=== PATIENT | male | born 1960 | race Caucasian/White ===

== ENCOUNTER 2021-04-25 11:56 | Inpatient (IN) | payer BC, OTHER ==
[~2021-04-25] VITALS: Ht 182 cm; Wt 102.7 kg
[2021-04-25] VITALS (9 sets, daily range): BP systolic 102–139; BP diastolic 67–91
[2021-04-25 12:15] LABS: BASOPHILS % (AUTO) 0 % (0-10); EOSINOPHILS % (AUTO) 0 % (0-10); HEMATOCRIT 42 % (40-54); HEMOGLOBIN 14.8 g/dL (13.3-17.7); LYMPHOCYTES % (AUTO) 9 % (12-44); MEAN CORPUSCULAR HEMOGLOBIN 32 pg (25-34); MEAN CORPUSCULAR HGB CONC 35 g/dL (32-36); MEAN CORPUSCULAR VOLUME 92 fL (80-99); MEAN PLATELET VOLUME 9.6 fL (9.0-12.2); MONOCYTES % (AUTO) 6 % (0-12); NEUTROPHILS % (AUTO) 84 % (42-75); PLATELET COUNT 401 10^3/uL (130-400); WHITE BLOOD COUNT 12.8 10^3/uL (4.3-11.0)
[2021-04-25 12:16] LABS: LYMPHOCYTES # (AUTO) 1.1 X 10^3 (1.0-4.0); MONOCYTES # (AUTO) 0.8 X 10^3 (0.0-1.0); NEUTROPHILS # (AUTO) 10.8 X 10^3 (1.8-7.8)
[2021-04-25 12:28] LABS: ALANINE AMINOTRANSFERASE 35 U/L (0-55); ALBUMIN 4.6 GM/DL (3.2-4.5); ALKALINE PHOSPHATASE 110 U/L (40-136); BILIRUBIN,TOTAL 0.4 MG/DL (0.1-1.0); BUN/CREATININE RATIO 19; CALCIUM 9.4 MG/DL (8.5-10.1); CARBON DIOXIDE 24 MMOL/L (21-32); CHLORIDE 103 MMOL/L (98-107); CREATININE SERUM 0.78 MG/DL (0.60-1.30); GFR ESTIMATED 101; GLUCOSE 136 MG/DL (70-105); POTASSIUM 4.4 MMOL/L (3.6-5.0); SODIUM 139 MMOL/L (135-145); TOTAL PROTEIN 7.4 GM/DL (6.4-8.2)
--- NOTE | 2021-04-25 12:33 | Diagnostic Imaging Report ---
Indication: Chest pain COMPARISON: None available. TECHNIQUE: Single radiograph of the chest dated 04/25/2021. FINDINGS: The cardiac silhouette is within normal limits in size. No significant pulmonary vessel congestion. The lungs are clear of focal pulmonary opacity. No pleural effusion. No pneumothorax. Postsurgical changes versus osteolysis associated distal left clavicle. No acute fracture. IMPRESSION: No acute cardiopulmonary abnormality. Postsurgical changes versus osteolysis associated with the distal left clavicle. Dictated by: Dictated on workstation # [id number]
--- NOTE | 2021-04-25 12:57 | ED Chest Pain ---
General Chief Complaint: Chest Pain Stated Complaint: CHEST PAIN Nursing Triage Note: STARTED AT ABOUT 1515 YESTERDAY. NUMBNESS AND TINGLING. DENIES HAVING PAIN RIGHT NOW. NO APPETITE. Source: patient, family Exam Limitations: no limitations History of Present Illness Date Seen by Provider: Apr 25, 2021 Time Seen by Provider: 11:55 Initial Comments Patient is a 60-year-old male who presents with episodic chest pain starting yesterday. Patient reports tightness above his upper chest rating to his left shoulder arm and neck. Symptoms were accompanied with sweats and disorientation lasted 20 to 30 minutes. Patient sat down until symptoms resolved. Since that time he reports indigestion loss of appetite and mild disorientation described as confusion upon waking this morning. He has not had recurrence of chest pain, shortness of breath, sweats, shoulder or neck pain or other anginal equivalent. Patient is currently asymptomatic. Known known history of coronary disease. No other acute symptoms or complaints. He is accompanied at bedside by his significant other. Timing/Duration: 24 hours Severity/Quality: mild Location: shoulder Activities at Onset: activity Prior CP/Workup: no prior chest pain, other Modifying Factors: improves with other ASA po TOOL AND DIE ASSEMBLER: No NTG SL TOOL AND DIE ASSEMBLER: No Associated Symptoms: dizziness, fatigue, heartburn, nausea/vomiting Allergies and Home Medications Allergies Coded Allergies: No Known Drug Allergies (Unverified , 04/25/21) Patient Home Medication List Home Medication List Reviewed: Yes Review of Systems Review of Systems Constitutional: see HPI EENTM: See HPI Cardiovascular: See HPI Gastrointestinal: See HPI Genitourinary: See HPI Musculoskeletal: see HPI Skin: see HPI Psychiatric/Neurological: See HPI Endocrine: See HPI Hematologic/Lymphatic: See HPI All Other Systems Reviewed Negative Unless Noted: Yes Past Omvlxtd-Myfcui-Djulzh Hx Patient Social History Tobacco Use?: Yes Tobacco type used: Cigarettes Smoking Status: Former Smoker Use of E-Cig and/or Vaping dev: No Substance use?: No Alcohol Use?: No Pt feels they are or have been: No Immunizations Up To Date First/Initial COVID19 Vaccinat: JUL 2020 Second COVID19 Vaccination Chris: AUGUST 2020 COVID19 Vaccine Heel Cutter: MODERNA Past Medical History Surgery/Hospitalization HX: GERD, HYPERLIPIDEMIA Physical Exam Vital Signs Vital Signs - First Documented 04/25/21 12:09 Temp 36.4 Pulse 72 Resp 18 B/P (MAP) 111/70 (84) Pulse Ox 94 O2 Delivery Room Air Capillary Refill : Less Than 3 Seconds Height, Weight, BMI Height: '" Weight: lbs. oz. kg; 29.00 BMI Method: General Appearance: No Apparent Distress, WD/WN HEENT: PERRL/EOMI, Normal ENT Inspection, Pharynx Normal Neck: Full Range of Motion, Non Tender, Supple Respiratory: Lungs Clear, Normal Breath Sounds Cardiovascular: Regular Rate, Rhythm Gastrointestinal: Non Tender, Soft Extremity: No Calf Tenderness Neurologic/Psychiatric: Alert, Oriented x3 Skin: Normal Color, Warm/Dry Focused Exam Sepsis Stage: Ruled Out Progress/Results/Core Measures Results/Orders Lab Results Laboratory Tests Test 04/25/21 12:05 Range/Units White Blood Count 12.8 H 4.3-11.0 10^3/uL Red Blood Count 4.59 4.30-5.52 10^6/uL Hemoglobin 14.8 13.3-17.7 g/dL Hematocrit 42 40-54 % Mean Corpuscular Volume 92 80-99 fL Mean Corpuscular Hemoglobin 32 25-34 pg Mean Corpuscular Hemoglobin Concent 35 32-36 g/dL Red Cell Distribution Width 12.3 10.0-14.5 % Platelet Count 401 H 130-400 10^3/uL Mean Platelet Volume 9.6 9.0-12.2 fL Immature Granulocyte % (Auto) 0 % Neutrophils (%) (Auto) 84 H 42-75 % Lymphocytes (%) (Auto) 9 L 12-44 % Monocytes (%) (Auto) 6 0-12 % Eosinophils (%) (Auto) 0 0-10 % Basophils (%) (Auto) 0 0-10 % Neutrophils # (Auto) 10.8 H 1.8-7.8 X 10^3 Lymphocytes # (Auto) 1.1 1.0-4.0 X 10^3 Monocytes # (Auto) 0.8 0.0-1.0 X 10^3 Eosinophils # (Auto) 0.0 0.0-0.3 10^3/uL Basophils # (Auto) 0.0 0.0-0.1 10^3/uL Immature Granulocyte # (Auto) 0.0 0.0-0.1 10^3/uL Sodium Level 139 135-145 MMOL/L Potassium Level 4.4 3.6-5.0 MMOL/L Chloride Level 103 98-107 MMOL/L Carbon Dioxide Level 24 21-32 MMOL/L Anion Gap 12 5-14 MMOL/L Blood Urea Nitrogen 15 7-18 MG/DL Creatinine 0.78 0.60-1.30 MG/DL Estimat Glomerular Filtration Rate 101 BUN/Creatinine Ratio 19 Glucose Level 136 H 70-105 MG/DL Calcium Level 9.4 8.5-10.1 MG/DL Corrected Calcium 8.5-10.1 MG/DL Total Bilirubin 0.4 0.1-1.0 MG/DL Aspartate Amino Transf (AST/SGOT) 129 H 5-34 U/L Alanine Aminotransferase (ALT/SGPT) 35 0-55 U/L Alkaline Phosphatase 110 40-136 U/L Troponin I 22.22 *H <0.30 NG/ML Total Protein 7.4 6.4-8.2 GM/DL Albumin 4.6 H 3.2-4.5 GM/DL My Orders Orders - JIGNESH BOYER DO Cbc With Automated Diff (04/25/21 12:12) Comprehensive Metabolic Panel (04/25/21 12:12) Troponin I Fs (04/25/21 12:12) Ekg-Prn For Chest Pain Or Rhyt (04/25/21 12:12) Chest 1 View Ap/Pa Only (04/25/21 12:12) Ekg Tracing (04/25/21 12:15) Cbc With Automated Diff (04/25/21 12:23) Urinalysis (04/25/21 12:23) Aspirin Chewable Tablet (Baby Aspirin Ch (04/25/21 13:00) Metoprolol Succinate (Xl) Tab (Toprol Xl (04/25/21 13:00) Clopidogrel Tablet (Plavix Tablet) (04/25/21 13:00) Famotidine Injection (Pepcid Injection) (04/26/21 09:00) Normal Saline Bolus 1,000ml (04/25/21 13:00) Vital Signs/I&O 04/25/21 12:09 Temp 36.4 Pulse 72 Resp 18 B/P (MAP) 111/70 (84) Pulse Ox 94 O2 Delivery Room Air Blood Pressure Mean: 84 Departure Communication (Admissions) EKG: Subtle ST elevation in leads II 3, aVF with upsloping T waves in the inferior lateral leads. Subtle ST depression in aVL and I. EKG does not meet strict criteria for ST segment elevation PA. Patient with symptoms highly concerning with coronary syndrome with abnormal EKG and a troponin elevation of 22. Denies active chest pain and is symptom-free in the emergency department. EKG lab and clinical history revealed in detail with Dr. Petit. Recommendations are aspirin, Plavix, Lovenox metoprolol, n.p.o. after midnight. Dr. Mary agrees to admit to cardiac stepdown unit Impression Primary Impression: NSTEMI (non-ST elevated myocardial infarction) Disposition: ADMITTED INPATIENT Condition: Stable Admissions Decision to Admit/Date: Apr 25, 2021 Time/Decision to Admit Time: 12:30 Transfer Method of Transfer: EMS Departure-Patient Inst. Referrals: ISAIAH BLAKE APRN (PCP) Primary Care Physician [facility] (Family) Primary Care Physician JIGNESH BOYER DO Apr 25, 2021 12:57
[2021-04-25] MEDS ORDERED: ASPIRIN 81 MG CHEW (CHILDREN'S ASA) PO ONE (13:00)
[2021-04-25] MEDS ORDERED: CLOPIDOGREL 300 MG (PLAVIX) TABLET PO ONE (13:00)
[2021-04-25] MEDS ORDERED: NS IV 1000 ML 1,000 ML IV SCH (13:00)
[2021-04-25] MEDS ORDERED: NITROGLYCERIN 0.4 MG SL TABS BTL 25'S SL PRN (14:30)
[2021-04-25] MEDS ORDERED: HYDROcodone/APAP 7.5 MG/325 MG (LORTAB, LORCET PLUS) TABLET PO PRN (14:30)
[2021-04-25] MEDS ORDERED: ACETAMINOPHEN 325 MG TABLET PO PRN (14:30)
[2021-04-25] MEDS ORDERED: ALPRAZolam 0.25 MG (XANAX) TAB PO PRN (14:30)
[2021-04-25] MEDS ORDERED: PATIENT MAY USE OWN MEDS, ALL PO SCH (14:30)
[2021-04-25] MEDS ORDERED: morphine INJ 10 MG/ML 1ML (SYR OR VIAL) IVP PRN (14:30)
[2021-04-25] MEDS ORDERED: morphine INJ 4 MG/ML 1 ML (VIAL/SYRINGE) IV PRN (14:45)
--- NOTE | 2021-04-25 16:04 | Consultation-Cardiology ---
HPI-Cardiology Cardiology Consultation: Date of Consultation 04/25/21 Time Seen by a Provider: 15:30 Date of Admission Attending Physician Yanely Mary DO Admitting Physician [facility] Consulting Physician SEDA ESPINOSA MD, MA, FACP, FACC, FSCAI, CCDS HPI: Chief Complaint: Chest discomfort 60 yo man who had cp on 04/24/21: midsternal, mod to severe, gradually resolving over several hours, radiating to L shoulder and L arm, not associated with other symptoms, never experienced before, w/o recurrence. Went to [facility] ER today, troponin found elevated, diagnosed with recent/acute NM and transferred to this hospital. No cp at this time. Denies palp or syncope or shortness of breath. Has chronic, intermittent ankle swelling for which he takes furosemide qod chronically. Denies fever or chills Review of Systems-Cardiology Review of Systems Constitutional: malaise; No weight loss, No weight gain Eyes: No vision change Ears/Nose/Throat: No ear discharge, No nasal drainage, No recent hearing loss Respiratory: No As described under HPI Cardiovascular: No As described under HPI Gastrointestinal: diarrhea (mild, intermittnet); No nausea, No vomiting Genitourinary: No dysuria, No hematuria Musculoskeletal: No back pain, No joint pain Skin: No rash, No ulcerations Psychiatric/Neurological: No seizure, No focal weakness, No syncope Hematologic: No bleeding abnormalities All Other Systems Reviewed Negative Unless Noted: Yes WKW-Ahzthm-Nxwegg Hx Patient Social History Smoking Status: Former Smoker Have you traveled recently?: No Alcohol Use?: No Pt feels they are or have been: No Tobacco type used: Cigarettes Past Medical History PMH As described under Assessment. Family Medical History Family Medical History: Does not report fam h/o early CAD or SCD Allergies and Home Medications Allergies Coded Allergies: No Known Drug Allergies (Unverified , 04/25/21) Patient Home Medication List Home Medication List Reviewed: Yes Physical Exam-Cardiology Physical Exam Vital Signs/I&O 04/25/21 04/25/21 04/25/21 04/25/21 12:09 13:40 14:16 14:22 Temp 36.4 36.0 36.6 Pulse 72 70 67 58 Resp 18 18 43 B/P (MAP) 111/70 (84) 100/56 129/83 (98) Pulse Ox 94 96 94 O2 Delivery Room Air Room Air Room Air 04/25/21 14:30 Pulse 65 Resp 20 B/P (MAP) 139/91 (113) Pulse Ox 97 O2 Delivery Room Air Capillary Refill : Less Than 3 Seconds Constitutional: AAO x 3, well-developed, well-nourished HEENT: EOMI, hearing is well preserved; No xanthelasmas are seen Neck: carotid pulses are 2 + bilaterally, with good upstrokes Respiratory: No accessory muscle use; other (good, bilat air entry) Cardiovascular: regular rate-rhythm, S1 and S2, systolic murmur (faint WOJCIECH at card base) Gastrointestinal: No tender; soft; No guarding, No rebound; audible bowel sounds Extremities: No clubbing, No cyanosis, No no lower extremity edema bilateral Neurologic/Psychiatric: oriented x 3, other (moves all limbs equally) Skin: warm/dry; No rash on exposed areas, No ulcerations on exposed areas Data Review Labs Laboratory Tests 04/25/21 12:05: White Blood Count 12.8H, Red Blood Count 4.59, Hemoglobin 14.8, Hematocrit 42, Mean Corpuscular Volume 92, Mean Corpuscular Hemoglobin 32, Mean Corpuscular Hemoglobin Concent 35, Red Cell Distribution Width 12.3, Platelet Count 401H, Mean Platelet Volume 9.6, Immature Granulocyte % (Auto) 0, Neutrophils (%) (Auto) 84H, Lymphocytes (%) (Auto) 9L, Monocytes (%) (Auto) 6, Eosinophils (%) (Auto) 0, Basophils (%) (Auto) 0, Neutrophils # (Auto) 10.8H, Lymphocytes # (Auto) 1.1, Monocytes # (Auto) 0.8, Eosinophils # (Auto) 0.0, Basophils # (Auto) 0.0, Immature Granulocyte # (Auto) 0.0, Sodium Level 139, Potassium Level 4.4, Chloride Level 103, Carbon Dioxide Level 24, Anion Gap 12, Blood Urea Nitrogen 15, Creatinine 0.78, Estimat Glomerular Filtration Rate 101, BUN/Creatinine Ratio 19, Glucose Level 136H, Calcium Level 9.4, Corrected Calcium , Total Bilirubin 0.4, Aspartate Amino Transf (AST/SGOT) 129H, Alanine Aminotransferase (ALT/SGPT) 35, Alkaline Phosphatase 110, Troponin I 22.22*H, Total Protein 7.4, Albumin 4.6H Laboratory Tests 04/25/21 12:05 ECG Impression ECG EKG : Comment ECG n 04/25/21: NSR w/o significant ST segment deviation A/P-Cardiology Assessment/Admission Diagnosis Recent / acute NSTEMI H/o hyperlipidemia Elevated BMI of 31 Discussion and Recomendations * Treat with DAPT and beta-taz and enoxaparin and stating * Cath advised and planned for tomorrow (or earlier, if needed). We reviewed rationale, procedure, risks, benefits, potential complications, and alternatives. He understands and provides informed consent Clinical Quality Measures AMI/AHF: ASA po Prior to arrival: SEDA Nair MD FACP [facility] CCDS Apr 25, 2021 16:04
[2021-04-25] MEDS: ENOXAPARIN 100 MG/1 ML (LOVENOX) SYR SC SCH (16:34)
[2021-04-25] MEDS ORDERED: RT-ALBUTEROL SULF 2.5 MG/3 ML PRE-MIX VIAL INH PRN (16:45)
[2021-04-26] VITALS (7 sets, daily range): BP systolic 96–125; BP diastolic 57–76
[2021-04-26] MEDS: ENOXAPARIN 100 MG/1 ML (LOVENOX) SYR SC SCH ×2 (03:56→17:11)
[2021-04-26 06:17] LABS: BASOPHILS % (AUTO) 0 % (0-10); EOSINOPHILS # (AUTO) 0.1 10^3/uL (0.0-0.3); EOSINOPHILS % (AUTO) 1 % (0-10); HEMATOCRIT 40 % (40-54); HEMOGLOBIN 13.5 g/dL (13.3-17.7); LYMPHOCYTES # (AUTO) 1.9 10^3/uL (1.0-4.0); LYMPHOCYTES % (AUTO) 21 % (12-44); MEAN CORPUSCULAR HEMOGLOBIN 32 pg (25-34); MEAN CORPUSCULAR HGB CONC 34 g/dL (32-36); MEAN CORPUSCULAR VOLUME 95 fL (80-99); MONOCYTES # (AUTO) 0.8 10^3/uL (0.0-1.0); MONOCYTES % (AUTO) 9 % (0-12); NEUTROPHILS # (AUTO) 6.1 10^3/uL (1.8-7.8); NEUTROPHILS % (AUTO) 68 % (42-75); PLATELET COUNT 319 10^3/uL (130-400)
[2021-04-26 06:43] LABS: ALBUMIN 3.8 GM/DL (3.2-4.5); BILIRUBIN,TOTAL 0.4 MG/DL (0.1-1.0); CALCIUM 8.7 MG/DL (8.5-10.1); CREATININE SERUM 0.79 MG/DL (0.60-1.30); MAGNESIUM 2.5 MG/DL (1.6-2.4); TOTAL PROTEIN 6.3 GM/DL (6.4-8.2)
[2021-04-26] MEDS: CLOPIDOGREL 75 MG (PLAVIX) TABLET PO SCH (08:01)
[2021-04-26] MEDS: FAMOTIDINE 20MG/2ML IV (PEPCID) IVP SCH (08:01)
[2021-04-26] MEDS: ASPIRIN 81 MG CHEW (CHILDREN'S ASA) PO SCH (08:01)
[2021-04-26] MEDS ORDERED: ASPIRIN 325 MG (5 GR) TABLET PO SCH (09:00)
--- NOTE | 2021-04-26 09:14 | Progress Note - Cardiology ---
Cardiology SOAP Progress Note Objective: I&O/Vital Signs 04/26/21 04/26/21 04/26/21 04/26/21 00:00 01:00 04:00 07:00 Temp 37.0 37.0 Pulse 70 61 73 70 Resp 15 17 B/P (MAP) 96/57 (70) 103/65 (78) Pulse Ox 92 92 O2 Delivery Room Air Room Air 04/26/21 08:00 Pulse 57 Resp 13 B/P (MAP) 125/71 (89) Pulse Ox 93 O2 Delivery Room Air 04/26/21 00:00 Intake Total 500 ml Balance 500 ml Constitutional: AAO x 3, well-developed, well-nourished Respiratory: No accessory muscle use; other (good, bilat air entry) Cardiovascular: regular rate-rhythm, S1 and S2, systolic murmur (faint WOJCIECH at card base) Gastrointestional: No tender; soft; No guarding, No rebound; audible bowel sounds Extremities: No clubbing, No cyanosis, No no lower extremity edema bilateral Neurologic/Psychiatric: oriented x 3, other (moves all limbs equally) Skin: warm/dry; No rash on exposed areas, No ulcerations on exposed areas Results/Procedures: Labs Laboratory Tests 04/25/21 12:05: White Blood Count 12.8H, Red Blood Count 4.59, Hemoglobin 14.8, Hematocrit 42, Mean Corpuscular Volume 92, Mean Corpuscular Hemoglobin 32, Mean Corpuscular Hemoglobin Concent 35, Red Cell Distribution Width 12.3, Platelet Count 401H, Mean Platelet Volume 9.6, Immature Granulocyte % (Auto) 0, Neutrophils (%) (Auto) 84H, Lymphocytes (%) (Auto) 9L, Monocytes (%) (Auto) 6, Eosinophils (%) (Auto) 0, Basophils (%) (Auto) 0, Neutrophils # (Auto) 10.8H, Lymphocytes # (Auto) 1.1, Monocytes # (Auto) 0.8, Eosinophils # (Auto) 0.0, Basophils # (Auto) 0.0, Immature Granulocyte # (Auto) 0.0, Sodium Level 139, Potassium Level 4.4, Chloride Level 103, Carbon Dioxide Level 24, Anion Gap 12, Blood Urea Nitrogen 15, Creatinine 0.78, Estimat Glomerular Filtration Rate 101, BUN/Creatinine Ratio 19, Glucose Level 136H, Calcium Level 9.4, Corrected Calcium , Total Bilirubin 0.4, Aspartate Amino Transf (AST/SGOT) 129H, Alanine Aminotransferase (ALT/SGPT) 35, Alkaline Phosphatase 110, Troponin I 22.22*H, Total Protein 7.4, Albumin 4.6H 04/26/21 05:45: White Blood Count 9.0, Red Blood Count 4.24L, Hemoglobin 13.5, Hematocrit 40, Mean Corpuscular Volume 95, Mean Corpuscular Hemoglobin 32, Mean Corpuscular Hemoglobin Concent 34, Red Cell Distribution Width 12.4, Platelet Count 319, Mean Platelet Volume 10.0, Immature Granulocyte % (Auto) 0, Neutrophils (%) (Auto) 68, Lymphocytes (%) (Auto) 21, Monocytes (%) (Auto) 9, Eosinophils (%) (Auto) 1, Basophils (%) (Auto) 0, Neutrophils # (Auto) 6.1, Lymphocytes # (Auto) 1.9, Monocytes # (Auto) 0.8, Eosinophils # (Auto) 0.1, Basophils # (Auto) 0.0, Immature Granulocyte # (Auto) 0.0, Sodium Level 141, Potassium Level 4.0, Chloride Level 107, Carbon Dioxide Level 22, Anion Gap 12, Blood Urea Nitrogen 14, Creatinine 0.79, Estimat Glomerular Filtration Rate 99, BUN/Creatinine Ratio 18, Glucose Level 96, Calcium Level 8.7, Corrected Calcium 8.9, Total Bilirubin 0.4, Aspartate Amino Transf (AST/SGOT) 142H, Alanine Aminotransferase (ALT/SGPT) 46, Alkaline Phosphatase 78, Total Protein 6.3L, Albumin 3.8, Magnesium Level 2.5H A/P: Assessment: Recent / acute NSTEMI H/o hyperlipidemia Elevated BMI of 31 Plan: * Treat with DAPT and beta-taz and enoxaparin and stating * Cath advised and planned for today. We reviewed rationale, procedure, risks, benefits, potential complications, and alternatives. He understands and provides informed consent Clinical Quality Measures AMI/AHF: ASA po Prior to arrival: MAURICE Galvan Apr 26, 2021 09:14
--- NOTE | 2021-04-26 09:48 | History & Physical ---
HPI Attending Physician Lashae Urias MD PCP [facility] Consult Date of Admission Apr 25, 2021 at 14:08 Home Medications Home Medications Reviewed patient Home Medication Reconciliation performed by pharmacy medication reconciliations service center technician and/or nursing. Patients Allergies have been reviewed. Allergies Coded Allergies: No Known Drug Allergies (Unverified , 04/25/21) OYS-Maoiml-Pgzvro Hx Patient Social History Smoking Status: Former Smoker Alcohol Use?: No Tobacco type used: Cigarettes Have you traveled recently?: No Physical Exam-([facility]) Physical Exam Vital Signs VS - Last 72 Hours, by Label 04/25/21 04/25/21 04/25/21 04/25/21 12:09 13:40 14:16 14:22 Temp 36.4 36.0 36.6 Pulse 72 70 67 58 Resp 18 18 43 B/P (MAP) 111/70 (84) 100/56 129/83 (98) Pulse Ox 94 96 94 O2 Delivery Room Air Room Air Room Air 04/25/21 04/25/21 04/25/21 04/25/21 14:30 15:00 15:15 15:30 Pulse 65 64 65 64 Resp 20 18 18 18 B/P (MAP) 139/91 (113) 115/75 (90) 112/83 (95) 114/82 (95) Pulse Ox 97 95 95 97 O2 Delivery Room Air Room Air Room Air Room Air 04/25/21 04/25/21 04/25/21 04/25/21 16:00 16:34 17:00 19:00 Temp 36.5 36.6 Pulse 54 65 58 68 Resp 19 11 B/P (MAP) 116/76 (95) 103/67 (74) Pulse Ox 96 97 97 O2 Delivery Room Air Room Air 04/25/21 04/25/21 04/26/21 04/26/21 20:00 21:00 00:00 01:00 Temp 36.8 37.0 Pulse 72 70 61 Resp 18 15 B/P (MAP) 102/71 (81) 96/57 (70) Pulse Ox 94 92 92 O2 Delivery Room Air Room Air Room Air 04/26/21 04/26/21 04/26/21 04:00 07:00 08:00 Temp 37.0 Pulse 73 70 57 Resp 17 13 B/P (MAP) 103/65 (78) 125/71 (89) Pulse Ox 92 93 O2 Delivery Room Air Room Air Capillary Refill : Less Than 3 Seconds Clinical Quality Measures AMI/AHF: ASA po Prior to arrival: LASHAE Lamas MD Apr 26, 2021 09:48
[2021-04-26] MEDS ORDERED: NS IV 1000 ML 1,000 ML ONE (11:03)
[2021-04-26] MEDS ORDERED: HEParin (CATH LAB) 2,000 ML IV ONE (11:03)
[2021-04-26] MEDS ORDERED: LIDOCAINE 1% INJ 20 ML 20 ML VIAL ONE (11:03)
[2021-04-26] MEDS ORDERED: fentaNYL INJ 100 MCG/2 ML AMP ONE (11:06)
[2021-04-26] MEDS ORDERED: MIDAZOLAM 5 MG/5 ML (VERSED) VIAL ONE (11:06)
[2021-04-26] MEDS ORDERED: RT-ALBUINH IH (11:33)
[2021-04-26] MEDS ORDERED: BUDE10.22 IH (11:33)
[2021-04-26] MEDS ORDERED: CETI10TA17 PO (11:33)
[2021-04-26] MEDS ORDERED: PANT40TA52 PO (11:33)
[2021-04-26] MEDS ORDERED: FURO20TA4 PO (11:33)
[2021-04-26] MEDS ORDERED: ATOR40TA70 PO (11:33)
[2021-04-26] MEDS ORDERED: MONT10TA32 PO (11:33)
[2021-04-26] MEDS ORDERED: ACET-2267 PO (11:33)
[2021-04-26] MEDS ORDERED: MULT-593 PO (11:33)
[2021-04-26] MEDS ORDERED: NITRO DRIP 25000 MCG/D5W 250 ML IV ONE (12:20)
[2021-04-26] MEDS ORDERED: HEParin 1000 UNIT/ML (10ML VIAL) FOR BOLUS ONE (12:20)
[2021-04-26] MEDS ORDERED: EPTIFIBATIDE BOLUS 20 ML IV ONE (12:22)
[2021-04-26] MEDS ORDERED: NS (IVPB) 250 ML ONE (12:37)
[2021-04-26] MEDS ORDERED: niCARdipine IV FOR DRIP 50 MG KIT ONE (12:38)
[2021-04-26] MEDS ORDERED: ASPIRIN 81 MG CHEW (CHILDREN'S ASA) ONE (12:58)
[2021-04-26] MEDS ORDERED: CLOPIDOGREL 300 MG (PLAVIX) TABLET PO ONE (12:58)
--- NOTE | 2021-04-26 13:10 | Progress Note - Cardiology ---
Cardiology SOAP Progress Note Subjective: Barraza not report cp or palp or syncope or shortness of breath Gen malaise present No n/v/d Objective: I&O/Vital Signs 04/26/21 04/26/21 04/26/21 04:00 07:00 08:00 Temp 37.0 Pulse 73 70 57 Resp 17 13 B/P (MAP) 103/65 (78) 125/71 (89) Pulse Ox 92 93 O2 Delivery Room Air Room Air 04/26/21 00:00 Intake Total 500 ml Balance 500 ml Constitutional: AAO x 3, well-developed, well-nourished Respiratory: No accessory muscle use; other (good, bilat air entry) Cardiovascular: regular rate-rhythm, S1 and S2, systolic murmur (faint WOJCIECH at card base) Gastrointestional: No tender; soft; No guarding, No rebound; audible bowel sounds Extremities: No clubbing, No cyanosis, No no lower extremity edema bilateral Neurologic/Psychiatric: oriented x 3, other (moves all limbs equally) Skin: warm/dry; No rash on exposed areas, No ulcerations on exposed areas Results/Procedures: Labs Laboratory Tests 04/26/21 05:45: White Blood Count 9.0, Red Blood Count 4.24L, Hemoglobin 13.5, Hematocrit 40, Mean Corpuscular Volume 95, Mean Corpuscular Hemoglobin 32, Mean Corpuscular Hemoglobin Concent 34, Red Cell Distribution Width 12.4, Platelet Count 319, Mean Platelet Volume 10.0, Immature Granulocyte % (Auto) 0, Neutrophils (%) (Auto) 68, Lymphocytes (%) (Auto) 21, Monocytes (%) (Auto) 9, Eosinophils (%) (Auto) 1, Basophils (%) (Auto) 0, Neutrophils # (Auto) 6.1, Lymphocytes # (Auto) 1.9, Monocytes # (Auto) 0.8, Eosinophils # (Auto) 0.1, Basophils # (Auto) 0.0, Immature Granulocyte # (Auto) 0.0, Sodium Level 141, Potassium Level 4.0, Chloride Level 107, Carbon Dioxide Level 22, Anion Gap 12, Blood Urea Nitrogen 14, Creatinine 0.79, Estimat Glomerular Filtration Rate 99, BUN/Creatinine Ratio 18, Glucose Level 96, Calcium Level 8.7, Corrected Calcium 8.9, Magnesium Level 2.5H, Total Bilirubin 0.4, Aspartate Amino Transf (AST/SGOT) 142H, Alanine Aminotransferase (ALT/SGPT) 46, Alkaline Phosphatase 78, Total Protein 6.3L, Albumin 3.8 Laboratory Tests 04/25/21 12:05 04/26/21 05:45 A/P: Assessment: Recent / acute NSTEMI - card cath of 04/26/21: no significant L cor disease, proximally occluded RCA (treated with balloon angioplasty followed by Starpoint 2.5 x 33 mm cor stent post-dilated with 2.75 balloon); LVEF 50%, mild to mod inferior hypokinesis; LVEDP 8 mmHg H/o hyperlipidemia Elevated BMI of 31 Plan: * Treat with DAPT and beta-taz and statin * D/c Lovenox * Increase ambulation * Discussed findings and interventions with him Clinical Quality Measures AMI/AHF: ASA po Prior to arrival: SEDA Nair MD FACP FAC CCDS Apr 26, 2021 13:09
[2021-04-26] MEDS: NS IV 1000 ML 1,000 ML IV SCH ×2 (13:25→23:19)
[2021-04-26] MEDS ORDERED: PATIENT MAY USE OWN MEDS, ALL PO SCH (13:30)
--- NOTE | 2021-04-26 13:54 | CARDIAC CATHETERIZATION ---
DATE OF SERVICE: 04/26/2021 CARDIAC CATHETERIZATION AND CORONARY INTERVENTION REPORT The patient is a 60-year-old gentleman who presented with recent or acute non-ST elevation myocardial infarction on 04/25/2021. Cardiac catheterization was carried out today after having obtained an informed consent. Informed consent was also obtained for ad hoc coronary intervention. DESCRIPTION OF PROCEDURE: He was brought to the cardiac catheterization laboratory. Right groin was prepared and draped in the usual sterile fashion. Lidocaine 1% was used for local anesthesia. Modified Seldinger technique was used to advance a 5-Pakistani sheath in right femoral artery. A 5-Pakistani JL4 catheter for left coronary angiography, 5-Pakistani JR4 catheter was used for right coronary angiography, 5-Pakistani pigtail catheter was used for left heart catheterization and left ventricular angiography. Subsequently, we carried out percutaneous intervention to the right coronary artery that is described below. PERCUTANEOUS INTERVENTION OF THE RIGHT CORONARY ARTERY: We exchanged the sheath over a wire for a 6-Pakistani sheath. We gave 4000 units of intravenous heparin and a double bolus of Integrilin. We used a 6-Pakistani JR4 guide catheter to engage the right coronary artery. We were unable to advance a ChoICE floppy wire across a complete occlusion in the proximal right coronary artery. We were able to advance a ChoICE PT Graphix wire across the complete occlusion and the tip was placed in the distal vessel. We carried out balloon angioplasty with a 2.0 x 20 mm balloon. Antegrade flow was established. Subsequently, we stented this long lesion with Starpoint 2.5 x 33 mm stent. The proximal vessel is somewhat larger caliber. Accordingly, we carried out post-dilation in the proximal and mid portion of the stent with a NC [place] 2.7 x 20 mm balloon. Subsequent angiography reveals no significant residual stenosis and flow throughout the vessel is normal. Angioplasty equipment was removed. Angiography of the right femoral artery had been carried out through the sheath at the beginning the procedure. At the end of the procedure, Mynx was used to achieve hemostasis. He tolerated the procedure well. HEMODYNAMICS: Left ventricular end-diastolic pressure following coronary angiography was 8 mmHg. There is no significant pressure gradient on pullback across the aortic valve. CORONARY ANGIOGRAPHY: Left main coronary artery, left anterior descending, left circumflex artery do not exhibit significant obstructive disease. There are minimal coronary plaques in the left anterior descending. Right coronary artery is dominant and was occluded in its proximal portion. It was successfully intervened on. Following deployment of Starpoint 2.5 x 33 mm stent, there is no significant residual stenosis and the flow has improved from KARYNA 0 to KARYNA 3. LEFT VENTRICULAR ANGIOGRAPHY: Left ventricular angiography was carried out in the right anterior oblique projection. There is mild to moderate hypokinesis of the inferior wall. Global left ventricular systolic function is well preserved. Left ventricular ejection fraction approximately 50%. CONCLUSIONS: 1. Coronary artery disease primarily consisting of complete proximal occlusion of a dominant right coronary that was successfully intervened on and does not exhibit any significant residual stenosis following deployment of Starpoint 2.5 x 33 mm stent. The left coronary system has mild plaque. 2. Normal left ventricular end-diastolic pressure. 3. Mild to moderate hypokinesis of the inferior wall of the left ventricle with well-preserved global left ventricular ejection fraction (50%). DISCUSSION AND RECOMMENDATIONS: Dual antiplatelet therapy is being continued. Beta taz therapy is being continued. Statin therapy is being continued. Risk factor modification has been reviewed. Job ID: [id number] DocumentID: [id number] Dictated Date: 04/26/2021 13:16:47 Applications Coordinator Date: 04/26/2021 13:53:41 Dictated By: SEDA ESPINOSA MD, MA, FACP, FACC,
--- NOTE | 2021-04-26 17:04 | History & Physical ---
HPI History of Present Illness: 60 yo M that presented with chest pain for the last 2 days. States that he had the most pain on Monday but had some more mild pain on Monday and finally decided to come in. Patient denies any h/o CAD or chest pain. Denies any HTN or DM. Previous smoking history but quit in 2006. No family history of CAD or sudden cardiac . Source: patient, spouse Exam Limitations: no limitations Date seen by provider: Apr 26, 2021 Time Seen by Provider: 08:50 Attending Physician Lashae Urias MD [place] [place] Consult Date of Admission Apr 25, 2021 at 14:08 Home Medications Home Medications Reviewed patient Home Medication Reconciliation performed by pharmacy medication reconciliations instrumentation technician and/or nursing. Patients Allergies have been reviewed. Allergies Coded Allergies: No Known Drug Allergies (Unverified , 04/25/21) [id number] Hx Patient Social History Living Status: with in home, independent Smoking Status: Former Smoker Alcohol Use?: No Tobacco type used: Cigarettes Have you traveled recently?: No Past Medical History HLD Family Medical History Significant Family History: No Pertinent Family Hx Review of Systems ([facility]) Constitutional: no symptoms reported EENTM: no symptoms reported; No mouth pain, No nose congestion, No throat pain Respiratory: no symptoms reported; No cough, No dyspnea on exertion, No short of breath Cardiovascular: chest pain; No palpitations Gastrointestinal: no symptoms reported; No abdominal pain, No constipation, No diarrhea, No nausea, No vomiting Genitourinary: no symptoms reported; No dysuria, No frequency, No hematuria Musculoskeletal: no symptoms reported; No back pain, No joint pain, No muscle pain Skin: no symptoms reported; No lesions, No rash Psychiatric/Neurological: Anxiety Reviewed Test Results Reviewed Test Results Lab Laboratory Tests Test 04/26/21 05:45 Range/Units White Blood Count 9.0 4.3-11.0 10^3/uL Red Blood Count 4.24 L 4.30-5.52 10^6/uL Hemoglobin 13.5 13.3-17.7 g/dL Hematocrit 40 40-54 % Mean Corpuscular Volume 95 80-99 fL Mean Corpuscular Hemoglobin 32 25-34 pg Mean Corpuscular Hemoglobin Concent 34 32-36 g/dL Red Cell Distribution Width 12.4 10.0-14.5 % Platelet Count 319 130-400 10^3/uL Mean Platelet Volume 10.0 9.0-12.2 fL Immature Granulocyte % (Auto) 0 % Neutrophils (%) (Auto) 68 42-75 % Lymphocytes (%) (Auto) 21 12-44 % Monocytes (%) (Auto) 9 0-12 % Eosinophils (%) (Auto) 1 0-10 % Basophils (%) (Auto) 0 0-10 % Neutrophils # (Auto) 6.1 1.8-7.8 10^3/uL Lymphocytes # (Auto) 1.9 1.0-4.0 10^3/uL Monocytes # (Auto) 0.8 0.0-1.0 10^3/uL Eosinophils # (Auto) 0.1 0.0-0.3 10^3/uL Basophils # (Auto) 0.0 0.0-0.1 10^3/uL Immature Granulocyte # (Auto) 0.0 0.0-0.1 10^3/uL Sodium Level 141 135-145 MMOL/L Potassium Level 4.0 3.6-5.0 MMOL/L Chloride Level 107 98-107 MMOL/L Carbon Dioxide Level 22 21-32 MMOL/L Anion Gap 12 5-14 MMOL/L Blood Urea Nitrogen 14 7-18 MG/DL Creatinine 0.79 0.60-1.30 MG/DL Estimat Glomerular Filtration Rate 99 BUN/Creatinine Ratio 18 Glucose Level 96 70-105 MG/DL Calcium Level 8.7 8.5-10.1 MG/DL Corrected Calcium 8.9 8.5-10.1 MG/DL Magnesium Level 2.5 H 1.6-2.4 MG/DL Total Bilirubin 0.4 0.1-1.0 MG/DL Aspartate Amino Transf (AST/SGOT) 142 H 5-34 U/L Alanine Aminotransferase (ALT/SGPT) 46 0-55 U/L Alkaline Phosphatase 78 40-136 U/L Total Protein 6.3 L 6.4-8.2 GM/DL Albumin 3.8 3.2-4.5 GM/DL Physical Exam-([facility]) Physical Exam Vital Signs VS - Last 72 Hours, by Label 04/25/21 04/25/21 04/25/21 04/25/21 12:09 13:40 14:16 14:22 Temp 36.4 36.0 36.6 Pulse 72 70 67 58 Resp 18 18 43 B/P (MAP) 111/70 (84) 100/56 129/83 (98) Pulse Ox 94 96 94 O2 Delivery Room Air Room Air Room Air 04/25/21 04/25/21 04/25/21 04/25/21 14:30 15:00 15:15 15:30 Pulse 65 64 65 64 Resp 20 18 18 18 B/P (MAP) 139/91 (113) 115/75 (90) 112/83 (95) 114/82 (95) Pulse Ox 97 95 95 97 O2 Delivery Room Air Room Air Room Air Room Air 04/25/21 04/25/21 04/25/21 04/25/21 16:00 16:34 17:00 19:00 Temp 36.5 36.6 Pulse 54 65 58 68 Resp 19 11 B/P (MAP) 116/76 (95) 103/67 (74) Pulse Ox 96 97 97 O2 Delivery Room Air Room Air 04/25/21 04/25/21 04/26/21 04/26/21 20:00 21:00 00:00 01:00 Temp 36.8 37.0 Pulse 72 70 61 Resp 18 15 B/P (MAP) 102/71 (81) 96/57 (70) Pulse Ox 94 92 92 O2 Delivery Room Air Room Air Room Air 04/26/21 04/26/21 04/26/21 04/26/21 04:00 07:00 07:50 08:00 Temp 37.0 36.6 Pulse 73 70 57 Resp 17 13 B/P (MAP) 103/65 (78) 125/71 (89) Pulse Ox 92 93 O2 Delivery Room Air Room Air Room Air 04/26/21 04/26/21 04/26/21 04/26/21 09:00 12:00 13:00 13:25 Temp 36.8 Pulse 61 56 Resp 16 B/P (MAP) 107/68 (81) Pulse Ox 94 96 O2 Delivery Room Air Room Air Room Air 04/26/21 16:00 Pulse 56 Resp 21 B/P (MAP) 103/64 (77) Pulse Ox 96 O2 Delivery Room Air Capillary Refill : Less Than 3 Seconds General Appearance: WD/WN, no apparent distress HEENT: PERRL/EOMI Neck: non-tender, full range of motion, supple Respiratory: chest non-tender, lungs clear, normal breath sounds, no respiratory distress, no accessory muscle use Cardiovascular: normal peripheral pulses, regular rate, rhythm, no edema, no murmur Gastrointestinal: normal bowel sounds, non tender, soft, no organomegaly Back: no CVA tenderness, no vertebral tenderness Extremities: normal range of motion, non-tender, no pedal edema, no calf tenderness, normal capillary refill Neurologic/Psychiatric: gm mobile II-XII nml as tested, no motor/sensory deficits, alert, normal mood/affect, oriented x 3 Skin: normal color, warm/dry Lymphatic: no adenopathy Assessment/Plan Assessment/Plan Admission Status: Inpatient Order (span 2 midnights) Reason for Inpatient Admission: CATH needed (1) NSTEMI (non-ST elevated myocardial infarction) Status: Acute Assessment & Plan: - Consult Cardiology, Cath today, no chest pain this AM, ASA/Plavix, statin, BB (2) HLD (hyperlipidemia) Status: Chronic Qualifiers: Qualified Codes: E78.2 - Mixed hyperlipidemia Clinical Quality Measures AMI/AHF: ASA po Prior to arrival: LASHAE Lamas MD Apr 26, 2021 17:04
[2021-04-27] MEDS: ENOXAPARIN 100 MG/1 ML (LOVENOX) SYR SC SCH (03:17)
[2021-04-27 03:51] VITALS: BP 111/73
[2021-04-27 05:45] LABS: BASOPHILS % (AUTO) 1 % (0-10); EOSINOPHILS # (AUTO) 0.1 10^3/uL (0.0-0.3); EOSINOPHILS % (AUTO) 1 % (0-10); HEMATOCRIT 39 % (40-54); LYMPHOCYTES # (AUTO) 1.9 10^3/uL (1.0-4.0); LYMPHOCYTES % (AUTO) 24 % (12-44); MEAN CORPUSCULAR HEMOGLOBIN 32 pg (25-34); MEAN CORPUSCULAR HGB CONC 33 g/dL (32-36); MEAN CORPUSCULAR VOLUME 95 fL (80-99); MONOCYTES # (AUTO) 0.9 10^3/uL (0.0-1.0); MONOCYTES % (AUTO) 11 % (0-12); NEUTROPHILS # (AUTO) 5.2 10^3/uL (1.8-7.8); NEUTROPHILS % (AUTO) 64 % (42-75); PLATELET COUNT 305 10^3/uL (130-400); WHITE BLOOD COUNT 8.2 10^3/uL (4.3-11.0)
[2021-04-27 06:01] LABS: ALBUMIN 3.7 GM/DL (3.2-4.5); POTASSIUM 3.9 MMOL/L (3.6-5.0)
[2021-04-27 06:02] LABS: CALCIUM 8.3 MG/DL (8.5-10.1)
[2021-04-27 06:04] LABS: TOTAL PROTEIN 5.9 GM/DL (6.4-8.2)
[2021-04-27 06:05] LABS: BILIRUBIN,TOTAL 0.5 MG/DL (0.1-1.0)
[2021-04-27 06:07] LABS: CREATININE SERUM 0.75 MG/DL (0.60-1.30)
[2021-04-27 08:00] VITALS: BP 118/79
--- NOTE | 2021-04-27 08:25 | Progress Note - Cardiology ---
Cardiology SOAP Progress Note Subjective: Lying in bed this morning Family at the bedside No c/o CP or SOB Objective: I&O/Vital Signs 04/26/21 04/27/21 04/27/21 04/27/21 23:15 01:00 01:47 03:51 Temp 36.8 36.7 Pulse 65 62 59 67 Resp 21 22 B/P (MAP) 100/57 (71) 111/73 (86) Pulse Ox 92 93 O2 Delivery Room Air Room Air 04/27/21 04/27/21 04/27/21 07:00 08:00 09:04 Pulse 60 67 Resp 20 B/P (MAP) 118/79 (92) Pulse Ox 94 93 O2 Delivery Room Air Room Air 04/27/21 00:00 Intake Total 660 ml Balance 660 ml Side: right Groin site without hematoma: Yes Condition: DP/PT pulses palpable, extremity w/d/p Bruising: mild bruising Constitutional: AAO x 3, well-developed, well-nourished Respiratory: other Cardiovascular: regular rate-rhythm, S1 and S2, systolic murmur Gastrointestional: soft, audible bowel sounds Extremities: No clubbing, No cyanosis, No no lower extremity edema bilateral Neurologic/Psychiatric: oriented x 3, other Skin: warm/dry Results/Procedures: Labs Laboratory Tests 04/27/21 05:21: White Blood Count 8.2, Red Blood Count 4.09L, Hemoglobin 13.0L, Hematocrit 39L, Mean Corpuscular Volume 95, Mean Corpuscular Hemoglobin 32, Mean Corpuscular Hemoglobin Concent 33, Red Cell Distribution Width 12.4, Platelet Count 305, Mean Platelet Volume 10.0, Immature Granulocyte % (Auto) 0, Neutrophils (%) (Auto) 64, Lymphocytes (%) (Auto) 24, Monocytes (%) (Auto) 11, Eosinophils (%) (Auto) 1, Basophils (%) (Auto) 1, Neutrophils # (Auto) 5.2, Lymphocytes # (Auto) 1.9, Monocytes # (Auto) 0.9, Eosinophils # (Auto) 0.1, Basophils # (Auto) 0.0, Immature Granulocyte # (Auto) 0.0, Sodium Level 139, Potassium Level 3.9, Chloride Level 106, Carbon Dioxide Level 22, Anion Gap 11, Blood Urea Nitrogen 13, Creatinine 0.75, Estimat Glomerular Filtration Rate 106, BUN/Creatinine Ratio 17, Glucose Level 99, Calcium Level 8.3L, Corrected Calcium 8.5, Total Bilirubin 0.5, Aspartate Amino Transf (AST/SGOT) 83H, Alanine Aminotransferase (ALT/SGPT) 42, Alkaline Phosphatase 79, Total Protein 5.9L, Albumin 3.7 Laboratory Tests 04/25/21 12:05 04/26/21 05:45 04/27/21 05:21 A/P: Assessment: Recent / acute NSTEMI - card cath of 04/26/21: no significant L cor disease, proximally occluded RCA (treated with balloon angioplasty followed by Starpoint 2.5 x 33 mm cor stent post-dilated with 2.75 balloon); LVEF 50%, mild to mod inferior hypokinesis; LVEDP 8 mmHg H/o hyperlipidemia - statin tx Elevated BMI of 31 Plan: * Continue with DAPT and beta-taz and statin * Increase ambulation * Multiple questions answered regarding intervention and plan of care * Likely d/c home today with out pt f/u in one week Clinical Quality Measures AMI/AHF: ASA po Prior to arrival: MAURICE Galvan Apr 27, 2021 08:25
[2021-04-27] MEDS ORDERED: CLOP75TA28 PO (08:30)
[2021-04-27] MEDS ORDERED: ASPI81TA64 PO (08:30)
[2021-04-27] MEDS ORDERED: MTP25TSR PO (08:30)
[2021-04-27 08:52] VITALS: BP 118/79
[2021-04-27] MEDS: FAMOTIDINE 20MG/2ML IV (PEPCID) IVP SCH (08:54)
[2021-04-27] MEDS: CLOPIDOGREL 75 MG (PLAVIX) TABLET PO SCH (08:54)
[2021-04-27] MEDS: ASPIRIN 81 MG CHEW (CHILDREN'S ASA) PO SCH (08:54)
[2021-04-27] MEDS: NS IV 1000 ML 1,000 ML IV SCH (08:55)
--- NOTE | 2021-04-27 10:16 | Discharge Summary ---
Diagnosis/Chief Complaint Date of Admission Apr 25, 2021 at 14:08 Date of Discharge 04/27/21 Admission Diagnosis Admission Diagnosis See problem list Discharge Diagnosis See below Problems/Diagnosis: (1) NSTEMI (non-ST elevated myocardial infarction) Assessment & Plan: - Consult Cardiology, Cath today, no chest pain this AM, ASA/Plavix, statin, BB Status: Acute (2) HLD (hyperlipidemia) Qualifiers: Qualified Codes: E78.2 - Mixed hyperlipidemia Status: Chronic (3) CAD (coronary artery disease) Qualifiers: Qualified Codes: I25.110 - Atherosclerotic heart disease of [place] coronary artery with unstable angina pectoris Status: Acute (4) Hyperglycemia Status: Acute Chief Complaint/HPI Chief Complaint/HPI 60 yo M that presented with chest pain for the last 2 days. States that he had the most pain on Monday but had some more mild pain on Monday and finally decided to come in. Patient denies any h/o CAD or chest pain. Denies any HTN or DM. Previous smoking history but quit in 2006. No family history of CAD or sudden cardiac . Discharge Summary-Simple/Stand Procedures Cath with stent placement x1 04/26/[address] Morales: Cardiology Discharge Physical Examination Allergies: Coded Allergies: No Known Drug Allergies (Unverified , 04/25/21) Vitals & I&Os Vital Sign - Last 12Hours Date Time Temp Pulse Resp B/P (MAP) Pulse Ox O2 Delivery O2 Flow Rate FiO2 04/27/21 09:04 93 Room Air 04/27/21 08:52 36.1 67 20 118/79 (92) Intake and Output 04/27/21 00:00 Intake Total 660 ml Balance 660 ml General Appearance: Alert, Oriented X3, Cooperative, No Acute Distress HEENT: Mucous Memb Moist/[place] Respiratory: Clear to Auscultation, Normal Air Movement Cardiovascular: Regular Rate, No Murmurs Abdominal: Normal Bowel Sounds, Soft, No Tenderness, No Masses Extremities: No Edema, No Tenderness/Swelling Skin: No Rashes, No Breakdown Neuro: Normal Speech, Strength at 5/5 X4 Ext, Sensation Intact, Cranial Nerves 3-12 NL Psych/Mental Status: Mental Status NL, Mood NL Hospital Course Was the Problem List Reviewed?: Yes See final discharge diagnosis. Discussion & Recommendations 60 yo M who presented with chest pain and found to have NSTEMI. Cardiology was consulted and patient was taken to the corn lab technician in the AM. He was found to have significant CAD and had stent placement x 1. Will have close f.u with Cardiology and PCP Margarita Vail. Discharge Condition at discharge stable Instructions to patient/family Please see electronic discharge instructions given to patient. Discharge Medications Reviewed and agree with Discharge Medication list on patient's Discharge Instruction sheet Clinical Quality Measures AMI/AHF: ASA po Prior to arrival: No Copy Copies To 1: Margarita PEREZ HOLLY R MD Apr 27, 2021 10:16
--- NOTE | 2021-04-27 10:17 | Discharge Summary ---
Discharge [facility] Reconcile Patient Problems Problems Reviewed?: Yes Discharge Medications New, Converted or Re-Newed RX: Transmitted to Pharmacy New Medications: Aspirin (Children's Aspirin) 81 Mg Tab.chew 81 MG PO DAILY, #90 TAB 3 Refills Clopidogrel Bisulfate (Clopidogrel) 75 Mg Tablet 75 MG PO DAILY, #90 TAB 3 Refills Metoprolol Succinate (Metoprolol Succinate) 25 Mg Tab.er.24h 25 MG PO DAILY, #90 TAB 3 Refills Continued Medications: Acetaminophen (Tylenol Extra Strength) 500 Mg Tablet 1000 MG PO BID, TAB Albuterol Sulfate (Proair Hfa) 1 Puff Puff 2 PUFF IH Q4H PRN for SHORTNESS OF BREATH, EA Atorvastatin Calcium (Atorvastatin Calcium) 40 Mg Tablet 40 MG PO DAILY, TAB Budesonide/Formoterol Fumarate (Symbicort 80-4.5 Mcg Inhaler) 10.2 Gm Hfa.aer.ad 2 PUFF IH BID PRN for SHORTNESS OF BREATH, EA Cetirizine HCl (Cetirizine HCl) 10 Mg Tablet 10 MG PO DAILY, TAB Montelukast Sodium (Montelukast Sodium) 10 Mg Tablet 10 MG PO HS, TAB Multivitamin with Minerals (Multiple Vitamin) 1 Each Tablet 1 EACH PO DAILY, TAB Pantoprazole Sodium (Pantoprazole Sodium) 40 Mg Tablet.dr 40 MG PO DAILY, TAB Discontinued Medications: Furosemide (Furosemide) 20 Mg Tablet 20 MG PO Q48H, TAB Patient Instructions Goal/Follow Up Appt: F.u with Cardiology 1 week F.u with PCP Margarita Vail 1-2 weeks Activity & Diet Discharge Diet: Cardiac Diet Activity as Tolerated: Yes LASHAE JORDAN MD Apr 27, 2021 10:17
[2021-04-27 12:06] VITALS: BP 107/64
--- NOTE | 2021-04-27 12:35 | Progress Note - Cardiology ---
Cardiology SOAP Progress Note Subjective: No cp or shortness of breath No groin or leg discomfort No palp or syncope No n/v/d Objective: I&O/Vital Signs 04/27/21 04/27/21 04/27/21 04/27/21 01:00 01:47 03:51 07:00 Temp 36.7 Pulse 62 59 67 60 Resp 22 B/P (MAP) 111/73 (86) Pulse Ox 93 O2 Delivery Room Air 04/27/21 04/27/21 04/27/21 04/27/21 08:00 08:52 09:04 10:37 Temp 36.1 Pulse 67 67 Resp 20 20 B/P (MAP) 118/79 (92) 118/79 (92) Pulse Ox 94 94 93 O2 Delivery Room Air Room Air Room Air Room Air 04/27/21 12:06 Temp 37.1 Pulse 62 Resp 20 B/P (MAP) 107/64 (78) Pulse Ox 94 O2 Delivery Room Air 04/26/21 23:59 Intake Total 660 ml Balance 660 ml Side: right Groin site without hematoma: Yes Condition: DP/PT pulses palpable, extremity w/d/p Bruising: mild bruising Constitutional: AAO x 3, well-developed, well-nourished Respiratory: other Cardiovascular: regular rate-rhythm, S1 and S2, systolic murmur Gastrointestional: soft, audible bowel sounds Extremities: No clubbing, No cyanosis, No no lower extremity edema bilateral Neurologic/Psychiatric: oriented x 3, other Skin: warm/dry Results/Procedures: Labs Laboratory Tests 04/27/21 05:21: White Blood Count 8.2, Red Blood Count 4.09L, Hemoglobin 13.0L, Hematocrit 39L, Mean Corpuscular Volume 95, Mean Corpuscular Hemoglobin 32, Mean Corpuscular Hemoglobin Concent 33, Red Cell Distribution Width 12.4, Platelet Count 305, My n Platelet Volume 10.0, Immature Granulocyte % (Auto) 0, Neutrophils (%) (Auto) 64, Lymphocytes (%) (Auto) 24, Monocytes (%) (Auto) 11, Eosinophils (%) (Auto) 1, Basophils (%) (Auto) 1, Neutrophils # (Auto) 5.2, Lymphocytes # (Auto) 1.9, Monocytes # (Auto) 0.9, Eosinophils # (Auto) 0.1, Basophils # (Auto) 0.0, Immature Granulocyte # (Auto) 0.0, Sodium Level 139, Potassium Level 3.9, Chloride Level 106, Carbon Dioxide Level 22, Anion Gap 11, Blood Urea Nitrogen 13, Creatinine 0.75, Estimat Glomerular Filtration Rate 106, BUN/Creatinine Ratio 17, Glucose Level 99, Calcium Level 8.3L, Corrected Calcium 8.5, Total Bilirubin 0.5, Aspartate Amino Transf (AST/SGOT) 83H, Alanine Aminotransferase (ALT/SGPT) 42, Alkaline Phosphatase 79, Total Protein 5.9L, Albumin 3.7 Laboratory Tests 04/26/21 05:45 04/27/21 05:21 A/P: Assessment: Recent / acute NSTEMI - card cath of 04/26/21: no significant L cor disease, proximally occluded RCA (treated with balloon angioplasty followed by Starpoint 2.5 x 33 mm cor stent post-dilated with 2.75 balloon); LVEF 50%, mild to mod inferior hypokinesis; L VEDP 8 mmHg H/o hyperlipidemia - statin tx Elevated BMI of 31 Plan: * Continue with DAPT and beta-taz and statin * Multiple questions answered regarding intervention and plan of care * Ok to d/c home today with out pt f/u in one week Clinical Quality Measures AMI/AHF: ASA po Prior to arrival: SEDA Nair MD FACP [facility] Apr 27, 2021 12:35
== END 2021-04-27 13:00 | disposition home or self-care (01) | DRG 247 ==
LOC: EDUNIT# 11:56 → ER FS 11:59 → CSD 14:08
PROVIDERS: ADMIT Internal Medicine; ATTEND Family Medicine
PROC: 027034Z Dilation of Coronary Artery, One Artery with Drug-eluting Intraluminal Device, Percutaneous Approach (ICD-10-PCS; principal; 2021-04-26)
PROC: 4A023N7 Measurement of Cardiac Sampling and Pressure, Left Heart, Percutaneous Approach (ICD-10-PCS; 2021-04-26)
PROC: B2111ZZ Fluoroscopy of Multiple Coronary Arteries using Low Osmolar Contrast (ICD-10-PCS; 2021-04-26)
PROC: B2151ZZ Fluoroscopy of Left Heart using Low Osmolar Contrast (ICD-10-PCS; 2021-04-26)
DX: I21.4 Non-ST elevation (NSTEMI) myocardial infarction (principal); E78.2 Mixed hyperlipidemia; I25.110 Atherosclerotic heart disease of native coronary artery with unstable angina pectoris; K21.9 Gastro-esophageal reflux disease without esophagitis; R73.9 Hyperglycemia, unspecified; Z79.899 Other long term (current) drug therapy; Z87.891 Personal history of nicotine dependence
CPT/HCPCS: 36415; 71045; 80053; 83735; 84484; 85025; 93005; 93306; 93458

== ENCOUNTER → 2021-08-20 | Outpatient (CLI) | payer BC ==
[~2021-08-20] MED LIST: ACET-2267 PO; ASPI81TA64 PO; ATOR40TA70 PO; BUDE10.22 IH; CETI10TA17 PO; CLOP75TA28 PO; FURO20TA4 PO; MONT-40 PO; MTP25TSR PO; MULT-593 PO; PANT40TA52 PO; RT-ALBUINH IH
[2021-08-20 10:57] LABS: ALBUMIN 4.4 GM/DL (3.2-4.5); BILIRUBIN,TOTAL 0.9 MG/DL (0.1-1.0); CREATININE SERUM 0.83 MG/DL (0.60-1.30); TOTAL PROTEIN 6.9 GM/DL (6.4-8.2)
== END ==
LOC: CARD 10:00
PROVIDERS: ATTEND Internal Medicine Cardiovascular Disease
DX: I34.0 Nonrheumatic mitral (valve) insufficiency (principal); I51.7 Cardiomegaly; I25.5 Ischemic cardiomyopathy; I25.10 Atherosclerotic heart disease of native coronary artery without angina pectoris; E78.2 Mixed hyperlipidemia; I25.2 Old myocardial infarction
CPT/HCPCS: 36415; 80053; 80061; 93306

== ENCOUNTER 2022-07-15 01:23 | Inpatient (IN) | payer BC ==
[~2022-07-15] VITALS: Ht 182.8 cm; Wt 100.7 kg
[~2022-07-15 01:23] MED LIST changes: +ALBU8.5H6 IH; -RT-ALBUINH IH
[2022-07-15] MEDS ORDERED: NS IV 1000 ML 1,000 ML IV STA (01:32)
--- NOTE | 2022-07-15 01:32 | ED Cough/URI ---
General Stated Complaint: GEN SICKNESS,FEVER History of Present Illness Date Seen by Provider: Jul 15, 2022 Time Seen by Provider: 01:27 Initial Comments 62-year-old male presents with just not feeling well, fever, cough. He reports he had a cough for about 2 weeks. He does use inhalers has not had since about 630. Patient was recently on antibiotics for sinus infection. Patient reports he just felt little dizzy, no nausea or vomiting. Allergies and Home Medications Allergies Coded Allergies: No Known Drug Allergies (Unverified , 04/25/21) Patient Home Medication List Home Medication List Reviewed: Yes Acetaminophen (Tylenol Extra Strength) 500 Mg Tablet, 1,000 MG PO BID, (Reported) Entered as Reported by: STEFANI JERRY on 04/26/21 113 Albuterol Sulfate (Ventolin Hfa) 1 Puff Puff, 2 PUFF IH Q4H PRN for SHORTNESS OF BREATH, (Reported) Entered as Reported by: STEFANI JERRY on 04/26/21 113 Aspirin (Children's Aspirin) 81 Mg Tab.chew, 81 MG PO DAILY Prescribed by: MAURICE STEVENS on 04/27/21 08 Atorvastatin Calcium (Atorvastatin Calcium) 40 Mg Tablet, 40 MG PO DAILY, (Reported) Entered as Reported by: STEFANI JERRY on 04/26/21 113 Budesonide/Formoterol Fumarate (Symbicort 80-4.5 Mcg Inhaler) 10.2 Gm Hfa.aer.ad, 2 PUFF IH BID PRN for SHORTNESS OF BREATH, (Reported) Entered as Reported by: STEFANI JERRY on 04/26/21 113 Cetirizine HCl (Cetirizine HCl) 10 Mg Tablet, 10 MG PO DAILY, (Reported) Entered as Reported by: STEFANI JERRY on 04/26/21 113 Clopidogrel Bisulfate (Clopidogrel) 75 Mg Tablet, 75 MG PO DAILY Prescribed by: MAURICE STEVENS on 04/27/21 08 Metoprolol Succinate (Metoprolol Succinate) 25 Mg Tab.er.24h, 25 MG PO DAILY Prescribed by: MAURICE STEVENS on 04/27/21 08 Montelukast Sodium (Montelukast Sodium) 10 Mg Tablet, 10 MG PO HS, (Reported) Entered as Reported by: STEFANI JERRY on 04/26/21 1133 Multivitamin with Minerals (Multiple Vitamin) 1 Each Tablet, 1 EACH PO DAILY, (Reported) Entered as Reported by: STEFANI JERRY on 04/26/21 1133 Pantoprazole Sodium (Pantoprazole Sodium) 40 Mg Tablet.dr, 40 MG PO DAILY, (Reported) Entered as Reported by: STEFANI JERRY on 04/26/21 1133 Review of Systems Review of Systems Constitutional: dizziness, fever, malaise EENTM: no symptoms reported Respiratory: cough, short of breath Cardiovascular: No chest pain Gastrointestinal: No abdominal pain, No nausea, No vomiting Musculoskeletal: no symptoms reported Skin: no symptoms reported Psychiatric/Neurological: No Symptoms Reported Past Ngjxlrv-Vockpv-Fpotwm Hx Immunizations Up To Date First/Initial COVID19 Vaccinat: JUL 2020 Second COVID19 Vaccination Chris: AUGUST 2020 Past Medical History Surgery/Hospitalization HX: GERD, HYPERLIPIDEMIA Family Medical History No Pertinent Family Hx Physical Exam Vital Signs - First Documented 07/15/22 07/15/22 01:25 01:53 Temp 37.3 Pulse 112 Resp 22 B/P (MAP) 134/72 (92) Pulse Ox 89 O2 Delivery Room Air O2 Flow Rate 2.00 Capillary Refill : Height: '" Weight: lbs. oz. kg; 31.00 BMI Method: General Appearance: WD/WN, no apparent distress Respiratory: no respiratory distress, no accessory muscle use, decreased breath sounds Cardiovascular: tachycardia Gastrointestinal: non tender, soft Neurologic/Psychiatric: alert, normal mood/affect, oriented x 3 Skin: normal color Progress/Results/Core Measures Suspected Sepsis SIRS Temperature: Pulse: Respiratory Rate: Laboratory Tests 07/15/22 01:28: White Blood Count 12.4H Blood Pressure / Mean: Laboratory Tests 07/15/22 01:28: Creatinine 1.03, Platelet Count 313, Total Bilirubin 0.6 Results/Orders Lab Results Laboratory Tests Test 07/15/22 01:28 07/15/22 01:31 Range/Units White Blood Count 12.4 H 4.3-11.0 10^3/uL Red Blood Count 4.52 4.30-5.52 10^6/uL Hemoglobin 14.7 13.3-17.7 g/dL Hematocrit 42 40-54 % Mean Corpuscular Volume 92 80-99 fL Mean Corpuscular Hemoglobin 33 25-34 pg Mean Corpuscular Hemoglobin Concent 35 32-36 g/dL Red Cell Distribution Width 13.1 10.0-14.5 % Platelet Count 313 130-400 10^3/uL Mean Platelet Volume 9.3 9.0-12.2 fL Immature Granulocyte % (Auto) 1 % Neutrophils (%) (Auto) 88 H 42-75 % Lymphocytes (%) (Auto) 6 L 12-44 % Monocytes (%) (Auto) 5 0-12 % Eosinophils (%) (Auto) 0 0-10 % Basophils (%) (Auto) 0 0-10 % Neutrophils # (Auto) 10.9 H 1.8-7.8 10^3/uL Lymphocytes # (Auto) 0.7 L 1.0-4.0 10^3/uL Monocytes # (Auto) 0.7 0.0-1.0 10^3/uL Eosinophils # (Auto) 0.0 0.0-0.3 10^3/uL Basophils # (Auto) 0.0 0.0-0.1 10^3/uL Immature Granulocyte # (Auto) 0.1 0.0-0.1 10^3/uL Neutrophils % (Manual) 65 % Lymphocytes % (Manual) 1 % Monocytes % (Manual) 3 % Metamyelocytes % 6 % Band Neutrophils 21 % Atypical Lymphocytes 1 % Reactive Lymphocytes 3 % Platelet Estimate NORMAL Blood Morphology Comment NORMAL Sodium Level 136 135-145 MMOL/L Potassium Level 4.4 3.6-5.0 MMOL/L Chloride Level 100 98-107 MMOL/L Carbon Dioxide Level 24 21-32 MMOL/L Anion Gap 12 5-14 MMOL/L Blood Urea Nitrogen 14 7-18 MG/DL Creatinine 1.03 0.60-1.30 MG/DL Estimat Glomerular Filtration Rate 81 BUN/Creatinine Ratio 14 Glucose Level 114 H 70-105 MG/DL Calcium Level 9.5 8.5-10.1 MG/DL Corrected Calcium 8.5-10.1 MG/DL Magnesium Level 1.8 1.6-2.4 MG/DL Total Bilirubin 0.6 0.1-1.0 MG/DL Aspartate Amino Transf (AST/SGOT) 29 5-34 U/L Alanine Aminotransferase (ALT/SGPT) 30 0-55 U/L Alkaline Phosphatase 115 40-136 U/L C-Reactive Protein 0.85 H <0.50 MG/DL Pro-B-Type Natriuretic Peptide 60.1 <125.0 PG/ML Total Protein 7.2 6.4-8.2 GM/DL Albumin 4.6 H 3.2-4.5 GM/DL Influenza Type A (RT-PCR) Not Detected Not Detecte Influenza Type B (RT-PCR) Not Detected Not Detecte SARS-CoV-2 RNA (RT-PCR) Not Detected Not Detecte My Orders Orders - NICHOLE,RALPH L DO Cbc With Automated Diff (07/15/22 01:32) Comprehensive Metabolic Panel (07/15/22 01:32) Magnesium (07/15/22 01:32) Influenza A And B By Pcr (07/15/22 01:32) Probnp Fs (07/15/22 01:32) Crp Fs (07/15/22 01:32) Covid 19 Inhouse Test (07/15/22 01:32) Chest Pa/Lat (2 View) (07/15/22 01:32) Ns Iv 1000 Ml (Sodium Chloride 0.9%) (07/15/22 01:32) Albuterol/Ipra Inhalation Soln (Duoneb I (07/15/22 01:45) Svn Small Volume Nebulizer (07/15/22 01:32) Manual Differential (07/15/22 01:28) Ct Angio Chest W (07/15/22 02:30) Iohexol Injection (Omnipaque 350 Mg/Ml 1 (07/15/22 02:45) Received Contrast (Hold Metformin- Contr (07/15/22 02:45) Ns (Ivpb) (Sodium Chloride 0.9% Ivpb Bag (07/15/22 02:45) Levofloxacin 750 Mg/150 Ml Iv (Levaquin (07/15/22 04:30) Ekg Tracing (07/15/22 05:34) O2 (07/15/22 05:34) Ed Admission (Communication) (07/15/22 06:40) Acetaminophen Tablet (Tylenol Tablet) (07/15/22 06:49) Medications Given in ED Current Medications Medications Dose Ordered Sig/Hong Route Start Time Stop Time Status Last Admin Dose Admin Albuterol/ Ipratropium 3 ml ONCE ONCE INH 07/15/22 01:45 07/15/22 01:46 DC 07/15/22 01:47 3 ML Iohexol 100 ml ONCE ONCE IV 07/15/22 02:45 07/15/22 02:46 DC 07/15/22 03:21 100 ML Levofloxacin/ Dextrose 150 ml @ 100 mls/hr ONCE ONCE IV 07/15/22 04:30 07/15/22 05:59 DC 07/15/22 04:38 100 MLS/HR Sodium Chloride 100 ml ONCE ONCE IV 07/15/22 02:45 07/15/22 02:46 DC 07/15/22 03:21 80 ML Vital Signs/I&O 07/15/22 07/15/22 01:25 01:53 Temp 37.3 Pulse 112 Resp 22 B/P (MAP) 134/72 (92) Pulse Ox 89 90 O2 Delivery Room Air Nasal Cannula O2 Flow Rate 2.00 Capillary Refill : Progress Note : Progress Note Patient with mild elevated white count on labs. Patient x-ray was reviewed and I did not appreciate any significant infiltrate or findings. Patient's heart rate remained around 115 initially after 1 L fluid bolus and his O2 saturations were in the low 90s. I obtained a CTA to evaluate for pulmonary embolism. CTA was reviewed and showed a left lower lobe pneumonia but no PE. Patient has a new oxygen requirement. We will admit him for observation for his oxygen need. I suspect that he probably chronically low oxygen and will likely need to go home on home oxygen. Discussed findings with Dr. Mary who graciously excepted patient for admission at [facility]. Patient was transferred to [facility] via EMS in stable condition. ECG Initial ECG Impression Date: Jul 15, 2022 Initial ECG Impression Time: 05:37 Initial ECG Rhythm: S.Tach Initial ECG Impression: Normal Diagnostic Imaging Diagonstic Imaging: CT Plain Films/CT/US/NM/MRI: chest Comments Left lower lobe pneumonia Reviewed: Reviewed Night [facility] Study Departure Impression Primary Impression: Left lower lobe pneumonia Qualified Codes: J18.9 - Pneumonia, unspecified organism Disposition: 30 STILL A PATIENT Condition: Stable Admissions Decision to Admit Reason: Admit from ER (General) Decision to Admit/Date: Jul 15, 2022 Departure-Patient Inst. Referrals: [facility] (PCP) Primary Care Physician ISAIAH BLAKE APRN (Family) Primary Care Physician RALPH NICHOLE DO Jul 15, 2022 01:32
[2022-07-15 01:40] LABS: BASOPHILS % (AUTO) 0 % (0-10); EOSINOPHILS % (AUTO) 0 % (0-10); HEMATOCRIT 42 % (40-54); HEMOGLOBIN 14.7 g/dL (13.3-17.7); LYMPHOCYTES # (AUTO) 0.7 10^3/uL (1.0-4.0); LYMPHOCYTES % (AUTO) 6 % (12-44); MEAN CORPUSCULAR HEMOGLOBIN 33 pg (25-34); MEAN CORPUSCULAR HGB CONC 35 g/dL (32-36); MEAN CORPUSCULAR VOLUME 92 fL (80-99); MEAN PLATELET VOLUME 9.3 fL (9.0-12.2); MONOCYTES # (AUTO) 0.7 10^3/uL (0.0-1.0); MONOCYTES % (AUTO) 5 % (0-12); NEUTROPHILS # (AUTO) 10.9 10^3/uL (1.8-7.8); NEUTROPHILS % (AUTO) 88 % (42-75); PLATELET COUNT 313 10^3/uL (130-400); WHITE BLOOD COUNT 12.4 10^3/uL (4.3-11.0)
[2022-07-15] MEDS ORDERED: RT-ALBUTEROL/IPRATROPIUM 3 ML (DUONEB) VIAL INH ONE (01:45)
[2022-07-15 02:24] LABS: BAND NEUTROPHILS 21 %; LYMPHOCYTES % (MANUAL) 1 %; NEUTROPHILS % (MANUAL) 65 %
[2022-07-15 02:25] LABS: ATYPICAL LYMPHOCYTES 1 %; METAMYELOCYTES % 6 %; MONOCYTES % (MANUAL) 3 %; PLATELET ESTIMATE NORMAL; RBC MORPH NORMAL; REACTIVE LYMPHOCYTES 3 %
[2022-07-15 02:26] LABS: ALANINE AMINOTRANSFERASE 30 U/L (0-55); ALKALINE PHOSPHATASE 115 U/L (40-136); BILIRUBIN,TOTAL 0.6 MG/DL (0.1-1.0); BUN/CREATININE RATIO 14; CALCIUM 9.5 MG/DL (8.5-10.1); CARBON DIOXIDE 24 MMOL/L (21-32); CHLORIDE 100 MMOL/L (98-107); CREATININE SERUM 1.03 MG/DL (0.60-1.30); GFR ESTIMATED 81; GLUCOSE 114 MG/DL (70-105); MAGNESIUM 1.8 MG/DL (1.6-2.4); POTASSIUM 4.4 MMOL/L (3.6-5.0); SODIUM 136 MMOL/L (135-145)
[2022-07-15 02:27] LABS: ALBUMIN 4.6 GM/DL (3.2-4.5); TOTAL PROTEIN 7.2 GM/DL (6.4-8.2)
[2022-07-15] MEDS ORDERED: HOLD METFORMIN - RECEIVED CONTRAST 20 ML VIAL IV SCH (02:45)
[2022-07-15] MEDS ORDERED: NS 100 ML (IVPB) BAG IV ONE (02:45)
[2022-07-15] MEDS ORDERED: IOHEXOL 350 MG/ML 100 ML (OMNIPAQUE 350) VIAL IV ONE (02:45)
--- NOTE | 2022-07-15 04:45 | Diagnostic Imaging Report ---
PROCEDURE: CT angiography of the chest with contrast. TECHNIQUE: Multiple contiguous axial images were obtained through the chest after uneventful bolus administration of intravenous contrast. 3D reconstructed CTA MIP acquisitions were also performed. Auto Exposure Controls were utilized during the CT exam to meet ALARA standards for radiation dose reduction. INDICATION: Shortness of breath, cough x2 weeks There are is bilateral basilar bronchial wall thickening with some interstitial infiltrate. There is a patchy area of alveolar consolidation at the left lung base. There are emphysematous changes in the lungs. There is no right ventricular strain. There are no appreciable pulmonary emboli. Aorta appears normal. Exam is somewhat compromised by motion artifact. There are no effusions or pneumothoraces. There is no hilar or mediastinal lymphadenopathy. IMPRESSION: COPD. Basilar bronchitis/pneumonia. Dictated by: Dictated on workstation # [id number]
--- NOTE | 2022-07-15 05:00 | Diagnostic Imaging Report ---
Indication: Cough and shortness of breath PA and lateral chest Heart size and pulmonary vascularity are normal. There is minimal left basilar atelectasis. Right lung is clear. There are no effusions. IMPRESSION: Minimal left basilar atelectasis Dictated by: Dictated on workstation # [id number]
[2022-07-15] MEDS ORDERED: ACETAMINOPHEN 500 MG TAB (TYLENOL) PO STA (06:49)
[2022-07-15 10:00] VITALS: BP 92/62
[2022-07-15] MEDS ORDERED: ONDANSETRON 4 MG/2 ML (SDV) Z0FRAN IV PRN ×2 (11:00)
[2022-07-15] MEDS ORDERED: HYDROmorphone 2 MG/ML VIAL (DILAUDID) IV PRN ×2 (11:00)
[2022-07-15] MEDS ORDERED: NS IV 1000 ML 1,000 ML IV SCH (11:00)
[2022-07-15] MEDS ORDERED: ONDANSETRON 4 MG (ZOFRAN) ORAL DISSOLVE TAB PO PRN ×2 (11:00)
[2022-07-15] MEDS ORDERED: ALPRAZolam 0.25 MG (XANAX) TAB PO PRN ×2 (11:00)
[2022-07-15] MEDS ORDERED: polyethylene glycoL POWDER 17 GM (MIRALAX) PACK PO PRN ×2 (11:00)
[2022-07-15] MEDS ORDERED: cloNIDine 0.1 MG (CATAPRES) TAB PO PRN ×2 (11:00)
[2022-07-15] MEDS ORDERED: diphenhydrAMINE 25 MG TAB (BENADRYL) PO PRN ×2 (11:00)
[2022-07-15] MEDS ORDERED: BISACODYL 10 MG SUPP (DULCOLAX) PR PRN ×2 (11:00)
[2022-07-15] MEDS ORDERED: ACETAMINOPHEN 325 MG TABLET PO PRN ×2 (11:00)
[2022-07-15] MEDS ORDERED: diphenhydrAMINE 50 MG/ML INJ (BENADRYL) IVP PRN ×2 (11:00)
[2022-07-15] MEDS ORDERED: ANTACID SUSP 30 ML UDC (MYLANTA) PO PRN ×2 (11:00)
[2022-07-15] MEDS ORDERED: MELATONIN 3 MG TABLET PO PRN ×2 (11:00)
[2022-07-15] MEDS ORDERED: ENOXAPARIN 40 MG/0.4 ML (LOVENOX) SYR SC SCH (11:00)
--- NOTE | 2022-07-15 11:50 | History & Physical-Hospitalist ---
History of Present Illness HPI/Chief Complaint CC: Pneumonia with hypoxia HPI: This is a 62yowM clinic patient of [facility] who presented to the [facility] ER with dyspnea. CTA was done which revealed no PE and only PNA. Patient had a stent placed by Dr Morales 04/2022 and remains on Plavix and ASA. He is a former smoker. Does not use O2 at home. Source: patient, family Exam Limitations: no limitations Date Seen 07/15/22 Time Seen by a Provider: 12:00 Attending Physician [place] PCP Admitting Physician: Yanely Mary DO Attending Physician: Yanely Mary DO Referring Physician Date of Admission Jul 15, 2022 at 09:15 Home Medications & Allergies Home Medications Reviewed patient Home Medication Reconciliation performed by pharmacy medication reconciliations urgent care technician and/or nursing. Patients Allergies have been reviewed. Allergies Allergies Coded Allergies No Known Drug Allergies (Armqazbfrh11/7/21) Past Mfrmjyv-Xmofuw-Fxylcz Hx Patient Social History Marrital Status: Employed/Student: retired Tobacco Use?: No Smoking Status: Former Smoker Substance use?: No Alcohol Use?: No Pt feels they are or have been: No Immunizations Up To Date First/Initial COVID19 Vaccinat: JUL 2020 Second COVID19 Vaccination Chris: AUGUST 2020 Tetanus Booster (TDap): Unknown Hepatitis A: No Hepatitis B: No Current Status Advance Directives: No Communicates: Verbally Primary Language: Russian Preferred Spoken Language: Russian Is interpretation needed?: No Past Medical History COPD Coronary Artery Disease, High Cholesterol, Hypertension HLD Family Medical History No Pertinent Family Hx Review of Systems Constitutional: see HPI Respiratory: dyspnea on exertion Physical Exam Physical Exam Vital Signs Vital Signs - First Documented 07/15/22 07/15/22 01:25 01:53 Temp 37.3 Pulse 112 Resp 22 B/P (MAP) 134/72 (92) Pulse Ox 89 O2 Delivery Room Air O2 Flow Rate 2.00 Capillary Refill : Less Than 3 Seconds Height, Weight, BMI Height: '" Weight: lbs. oz. kg; 29.00 BMI Method: General Appearance: No Apparent Distress, Chronically ill Eyes: Right Eye Normal Inspection, Right Eye PERRL HEENT: PERRL/EOMI, Normal ENT Inspection, Pharynx Normal, Moist Mucous Membranes Neck: Full Range of Motion, Normal Inspection, Non Tender Respiratory: Chest Non Tender, No Accessory Muscle Use, No Respiratory Distress, Crackles, Decreased Breath Sounds Cardiovascular: Regular Rate, Rhythm, No Edema, No Gallop, No JVD, No Murmur, Normal Peripheral Pulses Gastrointestinal: Normal Bowel Sounds, No Organomegaly, No Pulsatile Mass, Non Tender, Soft Back: Normal Inspection, No CVA Tenderness, No Vertebral Tenderness Extremity: Normal Capillary Refill, Normal Inspection, Normal Range of Motion, Non Tender, No Calf Tenderness, No Pedal Edema Neurologic/Psychiatric: Alert, Oriented x3, No Motor/Sensory Deficits, Normal Mood/Affect Skin: Normal Color, Warm/Dry Lymphatic: No Adenopathy Results Results/Procedures Labs Laboratory Tests 07/15/22 01:28 Patient resulted labs reviewed. Assessment/Plan Admission Diagnosis Assessment: Acute respiratory failure hypoxic type Pneumonia COPD Recent stent 04/2022 HTN HLP Plan: Monitor closely IV abx O2 Nebs Lovenox Home meds Admission Status: Observation YANELY MARY DO Jul 15, 2022 11:50
[2022-07-15] MEDS ORDERED: methylPREDNISolone 125 MG (Solu-MEDROL) VIAL IVP SCH ×2 (12:00)
[2022-07-15 12:26] VITALS: BP 101/70
[2022-07-15] MEDS: NS IV 1000 ML 1,000 ML IV SCH (13:24)
[2022-07-15] MEDS ORDERED: MTP25TSR PO (13:27)
[2022-07-15] MEDS ORDERED: ASPI-999 PO (13:27)
[2022-07-15] MEDS ORDERED: FLUT1AER IH (13:27)
[2022-07-15] MEDS ORDERED: ATOR80TA76 PO (13:27)
[2022-07-15] MEDS ORDERED: CLOP75TA28 PO (13:27)
[2022-07-15] MEDS: ENOXAPARIN 40 MG/0.4 ML (LOVENOX) SYR SC SCH ×2 (13:31→14:00)
[2022-07-15] MEDS: DOXYCYCLINE INJECTION 100 MG in NS (IVPB) 100 ML IV SCH (13:33)
[2022-07-15] MEDS: CEFEPIME 1,000 MG/NS 50 ML IVPB IV SCH ×4 (13:40→19:59)
[2022-07-15] MEDS: methylPREDNISolone 125 MG (Solu-MEDROL) VIAL IVP SCH ×2 (13:41→17:56)
[2022-07-15] MEDS ORDERED: RT-ALBUTEROL/IPRATROPIUM 3 ML (DUONEB) VIAL INH SCH (14:00)
[2022-07-15] MEDS: RT-ALBUTEROL/IPRATROPIUM 3 ML (DUONEB) VIAL INH SCH ×2 (14:33→19:43)
[2022-07-15 15:17] LABS: ABG BASE EXCESS 0.1 MMOL/L (-2.5-2.5); ABG OXYGEN SATURATION 91 % (94-100); ABG PCO2 40 MMHG (35-45); ABG PO2 59 MMHG (79-93); ABG TCO2 25.4 MMOL/L (21.0-31.0)
[2022-07-15 15:18] LABS: ALLENS TEST YES-POS; INSPIRED O2 3L; VENTILATOR NO
[2022-07-15 15:19] LABS: PATIENT TEMP 37.3
[2022-07-15 15:50] VITALS: BP 110/71
[2022-07-15 19:20] VITALS: BP 107/69
[2022-07-15] MEDS: RT--FLUTICASONE/SALMETEROL 113-14 (AIRDUO RespiCLICK) IH SCH (19:43)
[2022-07-15] MEDS: MONTELUKAST 10 MG (SINGULAIR) TAB PO SCH (20:01)
[2022-07-15] MEDS: DOCUSATE SODIUM 100 MG (COLACE) CAP PO SCH (20:29)
[2022-07-15] MEDS ORDERED: DOCUSATE SODIUM 100 MG (COLACE) CAP PO SCH (21:00)
[2022-07-15] MEDS ORDERED: ADVAIR HFA 115/21 MCG INHALER 8 GM IH SCH ×2 (21:00)
[2022-07-15] MEDS ORDERED: CEFEPIME INJECTION 2,000 MG in NS (IVPB) 50 ML IV SCH ×4 (21:00)
[2022-07-15 23:28] VITALS: BP 112/67
[2022-07-16] MEDS: methylPREDNISolone 125 MG (Solu-MEDROL) VIAL IVP SCH ×4 (00:33→17:55)
[2022-07-16] MEDS: DOXYCYCLINE INJECTION 100 MG in NS (IVPB) 100 ML IV SCH ×2 (00:33→11:57)
[2022-07-16] MEDS: NS IV 1000 ML 1,000 ML IV SCH (02:10)
[2022-07-16] MEDS: CEFEPIME 1,000 MG/NS 50 ML IVPB IV SCH ×8 (02:10→20:28)
[2022-07-16 03:28] VITALS: BP 106/66
[2022-07-16] MEDS: MULTIVIT W/MINERALS TAB (THERAGRAN M) PO SCH (05:10)
[2022-07-16 06:10] LABS: BASOPHILS % (AUTO) 0 % (0-10); EOSINOPHILS % (AUTO) 0 % (0-10); HEMATOCRIT 38 % (40-54); HEMOGLOBIN 12.9 g/dL (13.3-17.7); LYMPHOCYTES # (AUTO) 0.6 10^3/uL (1.0-4.0); LYMPHOCYTES % (AUTO) 6 % (12-44); MEAN CORPUSCULAR HEMOGLOBIN 32 pg (25-34); MEAN CORPUSCULAR HGB CONC 34 g/dL (32-36); MEAN CORPUSCULAR VOLUME 95 fL (80-99); MEAN PLATELET VOLUME 9.7 fL (9.0-12.2); MONOCYTES # (AUTO) 0.1 10^3/uL (0.0-1.0); MONOCYTES % (AUTO) 1 % (0-12); NEUTROPHILS # (AUTO) 10.2 10^3/uL (1.8-7.8); NEUTROPHILS % (AUTO) 93 % (42-75); PLATELET COUNT 304 10^3/uL (130-400)
[2022-07-16 06:19] LABS: ALBUMIN 3.7 GM/DL (3.2-4.5); POTASSIUM 3.8 MMOL/L (3.6-5.0)
[2022-07-16 06:21] LABS: CALCIUM 8.7 MG/DL (8.5-10.1)
[2022-07-16 06:22] LABS: TOTAL PROTEIN 6.1 GM/DL (6.4-8.2)
[2022-07-16 06:24] LABS: BILIRUBIN,TOTAL 0.5 MG/DL (0.1-1.0)
[2022-07-16 06:25] LABS: CREATININE SERUM 0.74 MG/DL (0.60-1.30)
--- NOTE | 2022-07-16 06:37 | Progress Note - Hospitalist ---
Subjective HPI/CC On Admission Date Seen by Provider: Jul 16, 2022 Time Seen by Provider: 11:00 CC: Pneumonia with hypoxia HPI: This is a 62yowM clinic patient of [facility] who presented to the [facility] ER with dyspnea. CTA was done which revealed no PE and only PNA. Patient had a stent placed by Dr Morales 04/2022 and remains on Plavix and ASA. He is a former smoker. Does not use O2 at home. Subjective/Events-last exam Patient doing a lot better We will Hep-Lock IV fluid and give 20 Mg of Lasix He has not really been ambulating around too much so we will ambulate in halls today I am planning on discharging today. Home O2 evaluation showed 3 L of continuous oxygen and crackles in the right lower lobe I do not feel comfortable discharging today Patient will ambulate today Lovenox maintained Definitely needs sleep study Review of Systems General: Fatigue, Malaise Pulmonary: Dyspnea Objective Exam Vital Signs Vital Signs Date Time Temp Pulse Resp B/P (MAP) Pulse Ox O2 Delivery O2 Flow Rate FiO2 07/16/22 12:29 36.8 89 19 131/63 (85) 92 Nasal Cannula 4.00 Capillary Refill : Less Than 3 Seconds General Appearance: No Apparent Distress, WD/WN, Chronically ill, Obese Respiratory: No Accessory Muscle Use, No Respiratory Distress, Crackles, Decreased Breath Sounds, Wheezing Cardiovascular: Regular Rate, Rhythm Neurologic/Psychiatric: Alert, Oriented x3, No Motor/Sensory Deficits, Normal Mood/Affect Results/Procedures Lab Laboratory Tests 07/16/22 05:23 Patient resulted labs reviewed. Assessment/Plan Assessment and Plan Assess & Plan/Chief Complaint Assessment: Acute respiratory failure hypoxic type-3 L of oxygen continuously currently Pneumonia COPD Recent stent 04/2022 HTN HLP Subtle volume overload Plan: Monitor closely IV abx O2 Nebs Lovenox Home meds Ambulate today Change to inpatient status ANUPAMA KUHN DO Jul 16, 2022 06:37
[2022-07-16] MEDS: RT-ALBUTEROL/IPRATROPIUM 3 ML (DUONEB) VIAL INH SCH ×3 (07:24→19:33)
[2022-07-16] MEDS: RT--FLUTICASONE/SALMETEROL 113-14 (AIRDUO RespiCLICK) IH SCH ×2 (07:25→19:34)
[2022-07-16] MEDS: LORATADINE (CLARITIN) 10 MG TAB PO SCH (08:13)
[2022-07-16] MEDS: ASPIRIN 81 MG CHEW (CHILDREN'S ASA) PO SCH (08:13)
[2022-07-16] MEDS: CLOPIDOGREL 75 MG (PLAVIX) TABLET PO SCH (08:13)
[2022-07-16] MEDS: PANTOPRAZOLE 40 MG (PROTONIX) TAB PO SCH (08:13)
[2022-07-16] MEDS: DOCUSATE SODIUM 100 MG (COLACE) CAP PO SCH ×2 (08:14→20:28)
[2022-07-16 08:59] VITALS: BP 143/64
[2022-07-16] MEDS ORDERED: NON-FORMULARY MEDICATION 1 EA EA (Cetirizine HCl 10 MG) PO SCH (09:00)
[2022-07-16] MEDS ORDERED: FLUTICASONE/VILANTEROL 100 MCG 14'S (BREO) IH SCH (09:00)
[2022-07-16] MEDS ORDERED: FUROSEMIDE 40 MG/4 ML INJ (LASIX) IVP NR (11:30)
[2022-07-16 12:29] VITALS: BP 131/63
[2022-07-16] MEDS: ENOXAPARIN 40 MG/0.4 ML (LOVENOX) SYR SC SCH (13:29)
[2022-07-16 16:30] VITALS: BP 115/53
[2022-07-16] MEDS: MONTELUKAST 10 MG (SINGULAIR) TAB PO SCH (20:28)
[2022-07-16 20:37] VITALS: BP 120/53
[2022-07-16 23:32] VITALS: BP 131/65
[2022-07-17] MEDS: DOXYCYCLINE INJECTION 100 MG in NS (IVPB) 100 ML IV SCH ×2 (00:48→12:01)
[2022-07-17] MEDS: methylPREDNISolone 125 MG (Solu-MEDROL) VIAL IVP SCH ×3 (00:48→11:58)
[2022-07-17] MEDS: CEFEPIME 1,000 MG/NS 50 ML IVPB IV SCH ×6 (02:01→13:00)
[2022-07-17 04:00] VITALS: BP 109/58
[2022-07-17] MEDS: MULTIVIT W/MINERALS TAB (THERAGRAN M) PO SCH (05:47)
[2022-07-17 06:05] LABS: BASOPHILS % (AUTO) 0 % (0-10); EOSINOPHILS % (AUTO) 0 % (0-10); HEMATOCRIT 37 % (40-54); HEMOGLOBIN 12.5 g/dL (13.3-17.7); LYMPHOCYTES # (AUTO) 0.7 10^3/uL (1.0-4.0); LYMPHOCYTES % (AUTO) 5 % (12-44); MEAN CORPUSCULAR HEMOGLOBIN 32 pg (25-34); MEAN CORPUSCULAR HGB CONC 34 g/dL (32-36); MEAN CORPUSCULAR VOLUME 95 fL (80-99); MONOCYTES # (AUTO) 0.4 10^3/uL (0.0-1.0); MONOCYTES % (AUTO) 3 % (0-12); NEUTROPHILS # (AUTO) 13.3 10^3/uL (1.8-7.8); NEUTROPHILS % (AUTO) 92 % (42-75); PLATELET COUNT 327 10^3/uL (130-400); WHITE BLOOD COUNT 14.5 10^3/uL (4.3-11.0)
[2022-07-17 06:32] LABS: ALBUMIN 3.6 GM/DL (3.2-4.5); POTASSIUM 4.2 MMOL/L (3.6-5.0)
[2022-07-17 06:33] LABS: CALCIUM 8.7 MG/DL (8.5-10.1)
[2022-07-17 06:35] LABS: TOTAL PROTEIN 6.1 GM/DL (6.4-8.2)
[2022-07-17 06:36] LABS: BILIRUBIN,TOTAL 0.3 MG/DL (0.1-1.0)
[2022-07-17 06:38] LABS: CREATININE SERUM 0.76 MG/DL (0.60-1.30)
[2022-07-17] MEDS: RT--FLUTICASONE/SALMETEROL 113-14 (AIRDUO RespiCLICK) IH SCH (07:11)
[2022-07-17] MEDS: RT-ALBUTEROL/IPRATROPIUM 3 ML (DUONEB) VIAL INH SCH (07:11)
[2022-07-17 07:31] VITALS: BP 110/63
--- NOTE | 2022-07-17 07:58 | Progress Note - Hospitalist ---
Subjective HPI/CC On Admission Date Seen by Provider: Jul 17, 2022 Time Seen by Provider: 11:00 CC: Pneumonia with hypoxia HPI: This is a 62yowM clinic patient of [facility] who presented to the [facility] ER with dyspnea. CTA was done which revealed no PE and only PNA. Patient had a stent placed by Dr Morales 04/2022 and remains on Plavix and ASA. He is a former smoker. Does not use O2 at home. Objective Exam Vital Signs Vital Signs Date Time Temp Pulse Resp B/P (MAP) Pulse Ox O2 Delivery O2 Flow Rate FiO2 07/17/22 11:21 36.8 77 18 114/65 (81) 90 Nasal Cannula 4.00 Capillary Refill : Less Than 3 Seconds Results/Procedures Lab Laboratory Tests 07/17/22 05:12 07/17/22 05:48 Patient resulted labs reviewed. Assessment/Plan Assessment and Plan Assess & Plan/Chief Complaint Assessment: Acute respiratory failure hypoxic type-3 L of oxygen continuously currently Pneumonia COPD Recent stent 04/2022 HTN HLP Subtle volume overload Plan: Monitor closely IV abx O2 Nebs Lovenox Home meds Ambulate today Change to inpatient status ANUPAMA KUHN DO Jul 17, 2022 07:57
[2022-07-17] MEDS: ASPIRIN 81 MG CHEW (CHILDREN'S ASA) PO SCH (08:10)
[2022-07-17] MEDS: PANTOPRAZOLE 40 MG (PROTONIX) TAB PO SCH (08:10)
[2022-07-17] MEDS: LORATADINE (CLARITIN) 10 MG TAB PO SCH (08:10)
[2022-07-17] MEDS: CLOPIDOGREL 75 MG (PLAVIX) TABLET PO SCH (08:11)
[2022-07-17] MEDS: DOCUSATE SODIUM 100 MG (COLACE) CAP PO SCH (08:18)
[2022-07-17 11:21] VITALS: BP 114/65
[2022-07-17] MEDS ORDERED: CEFD300C3 PO (11:54)
[2022-07-17] MEDS ORDERED: PRED10TA22 PO (11:54)
[2022-07-17] MEDS ORDERED: DOXY100T2 PO (11:54)
--- NOTE | 2022-07-17 11:57 | Discharge Summary ---
Discharge Summary Hospital Course Was the Problem List Reviewed?: Yes Problems/Dx: (1) Acute respiratory failure with hypoxia (2) Left lower lobe pneumonia Status: Acute Qualifiers: Qualified Codes: J18.9 - Pneumonia, unspecified organism (3) Hyperglycemia Status: Acute (4) CAD (coronary artery disease) Status: Acute (5) HLD (hyperlipidemia) Status: Chronic Hospital Course Date of Admission: Jul 16, 2022 at 11:51 Admission Diagnosis : Family Physician/Provider: Margarita Vail Aprn Date of Discharge: 07/17/22 Discharge Diagnosis: [ ] Hospital Course: Lengthy hospital course after he was admitted for observation for pneumonia with exacerbation of COPD. Oxygen was required which was new for him. He was alexandrea ntained on all home medications. No concerns for any cardiac etiology. He was ambulating around and doing very well lungs were clear and patient was deemed ready for discharge. Labs and Pending Lab Test: Laboratory Tests 07/17/22 05:12: White Blood Count 14.5H, Red Blood Count 3.91L, Hemoglobin 12.5L, Hematocrit 37L , Mean Corpuscular Volume 95, Mean Corpuscular Hemoglobin 32, Mean Corpuscular Hemoglobin Concent 34, Red Cell Distribution Width 13.1, Platelet Count 327, Mean Platelet Volume 10.0, Immature Granulocyte % (Auto) 1, Neutrophils (%) (Auto) 92H, Lymphocytes (%) (Auto) 5L, Monocytes (%) (Auto) 3, Eosinophils (%) (Auto) 0, Basophils (%) (Auto) 0, Neutrophils # (Auto) 13.3H, Lymphocytes # (Auto) 0.7L, Monocytes # (Auto) 0.4, Eosinophils # (Auto) 0.0, Basophils # (Auto) 0.0, Immature Granulocyte # (Auto) 0.1 07/17/22 05:48: Sodium Level 140, Potassium Level 4.2, Chloride Level 109H, Carbon Dioxide Level 20L, Anion Gap 11, Blood Urea Nitrogen 21H, Creatinine 0.76, Estimat Glomerular Filtration Rate 100, BUN/Creatinine Ratio 28, Glucose Level 145H, Calcium Level 8.7, Corrected Calcium 9.0, Total Bilirubin 0.3, Aspartate Amino Transf (AST/SGOT) 21, Alanine Aminotransferase (ALT/SGPT) 29, Alkaline Phosphatase 86, Total Protein 6.1L, Albumin 3.6 Home Meds Active Prednisone 10 Mg Tab.ds.pk 10 Mg PO DAILY Take 4 tabs(40mg)daily,decrease by 1 tab(10MG)daily. Cefdinir 300 Mg Capsule 300 Mg PO BID Doxycycline Hyclate 100 Mg Tablet 100 Mg PO BID Reported Breo Ellipta 100-25 Mcg INH (Fluticasone/Vilanterol) 100 Mcg-25 Mcg/Dose Blst.w.dev 1 Each IH DAILY Atorvastatin Calcium 80 Mg Tablet 80 Mg PO HS Aspirin 81 Mg Tab.chew 81 Mg PO DAILY Metoprolol Succinate 25 Mg Tab.er.24h 25 Mg PO DAILY Clopidogrel (Clopidogrel Bisulfate) 75 Mg Tablet 75 Mg PO DAILY Ventolin Hfa (Albuterol Sulfate) 1 Puff Puff 2 Puff IH Q4H PRN Multiple Vitamin (Multivitamin with Minerals) 1 Each Tablet 1 Each PO DAILY Tylenol Extra Strength (Acetaminophen) 500 Mg Tablet 1,000 Mg PO BID Cetirizine HCl 10 Mg Tablet 10 Mg PO DAILY Montelukast Sodium 10 Mg Tablet 10 Mg PO HS Pantoprazole Sodium 40 Mg Tablet.dr 40 Mg PO DAILY Assessment/Pt Instructions Margarita Vail to get a work release Discharge Planning: <30 minutes discharge planning Discharge Physical Examination Vital Signs Vital Signs Date Time Temp Pulse Resp B/P (MAP) Pulse Ox O2 Delivery O2 Flow Rate FiO2 07/17/22 11:21 36.8 77 18 114/65 (81) 90 Nasal Cannula 4.00 General Appearance: No Apparent Distress, WD/WN Respiratory: Chest Non Tender, Lungs Clear, Normal Breath Sounds, No Accessory Muscle Use, No Respiratory Distress Cardiovascular: Regular Rate, Rhythm, No Edema, No Gallop, No JVD, No Murmur, Normal Peripheral Pulses Neurologic/Psychiatric: Alert, Oriented x3, No Motor/Sensory Deficits, Normal Mood/Affect Allergies: Coded Allergies: No Known Drug Allergies (Unverified , 04/25/21) Discharge Summary Date of Admission Jul 16, 2022 at 11:51 Date of Discharge Discharge Date: Jul 17, 2022 Admission Diagnosis Assessment: Acute respiratory failure hypoxic type Pneumonia COPD Recent stent 04/2022 HTN HLP Plan: Monitor closely IV abx O2 Nebs Lovenox Home meds Discharge Diagnosis Assessment: Acute respiratory failure hypoxic type-3 L of oxygen continuously currently Pneumonia COPD Recent stent 04/2022 HTN HLP Subtle volume overload Plan: Monitor closely IV abx O2 Nebs Lovenox Home meds Ambulate today Change to inpatient status ANUPAMA KUHN DO Jul 17, 2022 11:57
[2022-07-17] MEDS: ENOXAPARIN 40 MG/0.4 ML (LOVENOX) SYR SC SCH (13:01)
[2022-07-17 14:14] VITALS: BP 114/65
== END 2022-07-17 13:27 | disposition home or self-care (01) | DRG 193 ==
LOC: EDUNIT# 01:23 → ER FS 01:24 → 4TH 09:15 → OBSVTOIN 07-16 11:51
PROVIDERS: ADMIT Internal Medicine; ATTEND Internal Medicine
DX: J18.9 Pneumonia, unspecified organism (principal); J96.01 Acute respiratory failure with hypoxia; J44.1 Chronic obstructive pulmonary disease with (acute) exacerbation; J44.0 Chronic obstructive pulmonary disease with (acute) lower respiratory infection; R73.9 Hyperglycemia, unspecified; I25.10 Atherosclerotic heart disease of native coronary artery without angina pectoris; I10 Essential (primary) hypertension; Z95.5 Presence of coronary angioplasty implant and graft; E87.70 Fluid overload, unspecified; Z87.891 Personal history of nicotine dependence; Z79.02 Long term (current) use of antithrombotics/antiplatelets; Z79.82 Long term (current) use of aspirin; Z79.899 Other long term (current) drug therapy; E78.00 Pure hypercholesterolemia, unspecified; Z20.822 Contact with and (suspected) exposure to COVID-19
CPT/HCPCS: 36415; 71046; 71275; 80053; 82805; 83735; 83880; 85007; 85025; 85027; 86141; 87636; 93005; 94640; 94760; 94761; G0378; Q9967

== ENCOUNTER 2022-08-25 19:22 | Outpatient (CLI) | payer BC ==
[~2022-08-25 19:22] MED LIST changes: +ASPI-999 PO; +ATOR80TA76 PO; +CEFD300C3 PO; +DOXY100T2 PO; +FLUT1AER IH; +PRED10TA22 PO
== END 2022-08-26 06:38 | disposition home or self-care (01) ==
LOC: SLEEP 19:22
PROVIDERS: ATTEND Nurse Practitioner Family
DX: G47.10 Hypersomnia, unspecified (principal); G47.9 Sleep disorder, unspecified; R06.83 Snoring
CPT/HCPCS: 95810

== ENCOUNTER → 2022-11-15 | Outpatient (CLI) | payer BC ==
[~2022-11-15] MED LIST changes: +RT-ALBUTEROL SULF 2.5 MG/3 ML PRE-MIX VIAL INH ONE
== END ==
LOC: RT 10:44
PROVIDERS: ATTEND Nurse Practitioner Family
DX: J44.9 Chronic obstructive pulmonary disease, unspecified (principal)
CPT/HCPCS: 94060; 94726; 94729

== ENCOUNTER 2022-11-23 19:30 | Outpatient (CLI) | payer BC ==
[~2022-11-23 19:30] MED LIST changes: -RT-ALBUTEROL SULF 2.5 MG/3 ML PRE-MIX VIAL INH ONE
== END 2022-11-24 06:45 | disposition home or self-care (01) ==
LOC: SLEEP 19:30
PROVIDERS: ATTEND Nurse Practitioner Family
DX: G47.33 Obstructive sleep apnea (adult) (pediatric) (principal); J44.9 Chronic obstructive pulmonary disease, unspecified; G47.19 Other hypersomnia; J30.89 Other allergic rhinitis; Z87.09 Personal history of other diseases of the respiratory system
CPT/HCPCS: 95811